=== PATIENT | female | born 1945 | race Caucasian/White ===

== ENCOUNTER 2017-02-19 02:46 | Inpatient (IN) | payer OTHER ==
[~2017-02-19] VITALS: Ht 172.7 cm; Wt 97.4 kg
[~2017-02-19 02:46] MED LIST: AMLO5TAB2 PO; ATOR20TA; ATOR20TA50 PO; CAPT25TA5; CAPT25TA5 PO; CLON0.1T PO; CLON0.2T; GLIP-116 PO; HYDR25TA4 PO; INSDRIP SC; INSUINJ2 SC; LEVO100T8 PO; NPH INSULIN; POTA10TA51 PO
[2017-02-19] MEDS ORDERED: ALBUTEROL SULF 2.5 MG/0.5ML(0.5%) NEB SOLN NEB ONE (03:15)
[2017-02-19] MEDS ORDERED: IPRATROPIUM BROM 0.5 MG/2.5ML INH SOL NEB ONE (03:15)
[2017-02-19] MEDS ORDERED: FUROSEMIDE 20 MG/2 ML VIAL IV ONE (03:30)
[2017-02-19 04:06] LABS: Basophils # (auto) 0 uL; Basophils % (auto) 0.2 % (0.0-2.0); Eosinophils # (auto) 0.1 uL; Eosinophils % (auto) 0.7 % (0.0-7.0); Hematocrit 30.2 % (36.0-46.0); Hemoglobin 10.3 g/dL (12.2-16.2); Lymphocytes # (auto) 1.4 uL; Mean Corpuscular Hemoglobin 30.2 pg (28.0-32.0); Monocytes # (auto) 1.6 uL; Monocytes % (auto) 13.3 % (0.0-12.0); Neutrophils # (auto) 8.6 uL; Neutrophils % (auto) 73.8 % (37.0-80.0); Nucleated Red Blood Cells % 0.2 %; Platelet Count (auto) 336 10^3/uL (140-450); Red Cell Distribution Width 16.3 % (11.8-14.3); White Blood Cell 11.7 10^3/uL (4.4-10.8)
[2017-02-19 04:27] LABS: Albumin 2.8 g/dL (3.4-5.0); BUN/Creatinine Ratio 23.8; Calcium 8.1 mg/dL (8.5-10.1); Potassium 3.3 mmol/L (3.5-5.1)
[2017-02-19 04:29] LABS: Bilirubin, Total 0.7 mg/dL (0.2-1.0); Total Protein 7.2 g/dL (6.4-8.2)
[2017-02-19] MEDS ORDERED: DEXTROSE (50%) 50ML SYRG IV ONE (04:45)
[2017-02-19] MEDS ORDERED: POTASSIUM CHL 20 Meq TABLET PO ONE (06:00)
[2017-02-19] MEDS ORDERED: cefTRIAXone 1GM/10ml IVPUSH 10 ML IV ONE (06:00)
[2017-02-19] MEDS ORDERED: ACETAMINOPHEN 500 MG TAB PO PRN (06:30)
[2017-02-19] MEDS ORDERED: ONDANSETRON HCL 4 MG/2 ML VIAL IV PRN (06:30)
[2017-02-19] MEDS: LEVOTHYROXINE SODIUM 100 MCG TAB PO SCH (07:59)
[2017-02-19 08:57] VITALS: BP 170/74
[2017-02-19] MEDS ORDERED: amLODIPine BESYLATE 5 MG TAB PO SCH (10:00)
[2017-02-19] MEDS ORDERED: cloNIDine HCL 0.1 MG TAB PO SCH (10:00)
[2017-02-19] MEDS ORDERED: FUROSEMIDE 40 MG/4 ML VIAL IV SCH (10:00)
[2017-02-19] MEDS: CLOPIDOGREL BISULFATE 75 MG TAB PO SCH (10:09)
[2017-02-19] MEDS: CARVEDILOL 12.5 MG TAB PO SCH ×2 (10:10→22:51)
[2017-02-19] MEDS ORDERED: ASPirin 81 mg TAB PO ONE (13:00)
[2017-02-19] MEDS ORDERED: LISINOPRIL 10 MG TAB PO ONE (13:00)
[2017-02-19] MEDS ORDERED: DEXTROSE (50%) 50ML SYRG IV PRN (13:00)
[2017-02-19 15:04] VITALS: BP 124/71
[2017-02-19 16:41] VITALS: BP 134/59
[2017-02-19] MEDS: ACCU-CHEK COMFORT CURVE STRIP VI SCH ×2 (17:00→22:00)
[2017-02-19] MEDS: InsuLIN REG 1unit/0.01ml Soln (100units/ml) SC SCH ×2 (17:58→22:00)
[2017-02-19 22:00] VITALS: BP 172/83
[2017-02-19] MEDS: FUROSEMIDE 40 MG/4 ML VIAL IV SCH (22:49)
[2017-02-19] MEDS: ATORVASTATIN 20 MG TAB PO SCH (22:49)
[2017-02-19] MEDS: cloNIDine HCL 0.1 MG TAB PO SCH (22:50)
[2017-02-19] MEDS: POTASSIUM CHL 20 Meq TABLET PO SCH (22:54)
[2017-02-20 05:00] VITALS: BP 140/71
[2017-02-20] MEDS: InsuLIN REG 1unit/0.01ml Soln (100units/ml) SC SCH ×4 (06:59→21:19)
[2017-02-20] MEDS: ACCU-CHEK COMFORT CURVE STRIP VI SCH ×4 (06:59→21:18)
[2017-02-20] MEDS: LEVOTHYROXINE SODIUM 100 MCG TAB PO SCH (07:00)
[2017-02-20 07:13] LABS: BUN/Creatinine Ratio 33.7; Calcium 8.3 mg/dL (8.5-10.1); Magnesium 2.4 mg/dL (1.6-2.6); Potassium 3.9 mmol/L (3.5-5.1)
[2017-02-20 09:00] VITALS: BP 149/58
[2017-02-20] MEDS ORDERED: LISINOPRIL 10 MG TAB PO SCH (10:00)
[2017-02-20] MEDS: CARVEDILOL 12.5 MG TAB PO SCH ×2 (10:00→21:42)
[2017-02-20] MEDS: cloNIDine HCL 0.1 MG TAB PO SCH ×2 (10:00→21:45)
[2017-02-20] MEDS: POTASSIUM CHL 20 Meq TABLET PO SCH ×2 (10:39→21:16)
[2017-02-20] MEDS: ASPirin 81 mg TAB PO SCH (10:39)
[2017-02-20] MEDS: CLOPIDOGREL BISULFATE 75 MG TAB PO SCH (10:40)
[2017-02-20] MEDS: FUROSEMIDE 40 MG/4 ML VIAL IV SCH ×2 (10:42→21:46)
[2017-02-20] MEDS ORDERED: METOLAZONE 5 MG TAB PO ONE (12:00)
[2017-02-20 13:00] VITALS: BP 126/53
[2017-02-20 17:00] VITALS: BP 151/87
[2017-02-20] MEDS: ATORVASTATIN 20 MG TAB PO SCH (21:16)
[2017-02-20] MEDS: HYDROcodone-ACET 5/325MG TAB PO PRN (21:17)
[2017-02-20 22:00] VITALS: BP 158/73
[2017-02-21 05:00] VITALS: BP 125/64
[2017-02-21] MEDS: HYDROcodone-ACET 5/325MG TAB PO PRN ×3 (05:37→20:13)
[2017-02-21 06:28] LABS: BUN/Creatinine Ratio 46.1; Calcium 8.1 mg/dL (8.5-10.1); Potassium 4.1 mmol/L (3.5-5.1)
[2017-02-21] MEDS: LEVOTHYROXINE SODIUM 100 MCG TAB PO SCH (06:55)
[2017-02-21] MEDS: ACCU-CHEK COMFORT CURVE STRIP VI SCH ×4 (06:56→22:00)
[2017-02-21] MEDS: InsuLIN REG 1unit/0.01ml Soln (100units/ml) SC SCH ×4 (06:56→22:00)
[2017-02-21 08:00] VITALS: BP 140/63
[2017-02-21 09:00] VITALS: BP 140/63
[2017-02-21] MEDS: FUROSEMIDE 40 MG/4 ML VIAL IV SCH ×2 (09:48→22:12)
[2017-02-21] MEDS: POTASSIUM CHL 20 Meq TABLET PO SCH ×2 (09:48→22:15)
[2017-02-21] MEDS: METOLAZONE 5 MG TAB PO SCH (09:48)
[2017-02-21] MEDS: CARVEDILOL 12.5 MG TAB PO SCH ×2 (09:49→22:00)
[2017-02-21] MEDS: CLOPIDOGREL BISULFATE 75 MG TAB PO SCH (09:49)
[2017-02-21] MEDS: ASPirin 81 mg TAB PO SCH (09:49)
[2017-02-21] MEDS: LISINOPRIL 10 MG TAB PO SCH (09:50)
[2017-02-21] MEDS: cloNIDine HCL 0.1 MG TAB PO SCH ×2 (09:50→22:27)
[2017-02-21 11:58] VITALS: BP 119/54
[2017-02-21 14:29] LABS: Urine Bacteria NONE SEEN /hpf (None Seen); Urine Blood TRACE /uL (Negative); Urine Mucus FEW (None Seen); Urine Specific Gravity 1.007 (1.001-1.035); Urine WBC 1 /hpf (0 - 5)
[2017-02-21 17:25] VITALS: BP 138/79
[2017-02-21 22:00] VITALS: BP 155/57
[2017-02-21] MEDS: ATORVASTATIN 20 MG TAB PO SCH (22:15)
[2017-02-22] MEDS: HYDROcodone-ACET 5/325MG TAB PO PRN ×4 (02:16→20:07)
[2017-02-22 05:00] VITALS: BP 138/64
[2017-02-22 06:15] LABS: Calcium 8.1 mg/dL (8.5-10.1); Potassium 3.7 mmol/L (3.5-5.1)
[2017-02-22 06:17] LABS: BUN/Creatinine Ratio 45.3
[2017-02-22] MEDS: LEVOTHYROXINE SODIUM 100 MCG TAB PO SCH (07:05)
[2017-02-22] MEDS: ACCU-CHEK COMFORT CURVE STRIP VI SCH ×4 (07:07→22:51)
[2017-02-22] MEDS: InsuLIN REG 1unit/0.01ml Soln (100units/ml) SC SCH ×4 (07:07→22:51)
[2017-02-22 08:00] VITALS: BP 135/58
[2017-02-22 09:38] VITALS: BP 135/58
[2017-02-22] MEDS: CARVEDILOL 12.5 MG TAB PO SCH ×2 (10:00→22:40)
[2017-02-22] MEDS: ASPirin 81 mg TAB PO SCH (10:27)
[2017-02-22] MEDS: POTASSIUM CHL 20 Meq TABLET PO SCH ×2 (10:27→22:40)
[2017-02-22] MEDS: METOLAZONE 5 MG TAB PO SCH (10:27)
[2017-02-22] MEDS: LISINOPRIL 10 MG TAB PO SCH (10:27)
[2017-02-22] MEDS: CLOPIDOGREL BISULFATE 75 MG TAB PO SCH (10:27)
[2017-02-22] MEDS: FUROSEMIDE 40 MG/4 ML VIAL IV SCH ×2 (10:28→22:39)
[2017-02-22] MEDS: cloNIDine HCL 0.1 MG TAB PO SCH ×2 (10:28→22:40)
[2017-02-22 13:00] VITALS: BP 147/59
[2017-02-22 17:00] VITALS: BP 150/67
[2017-02-22 22:11] VITALS: BP 140/63
[2017-02-22] MEDS: ATORVASTATIN 20 MG TAB PO SCH (22:39)
[2017-02-23] MEDS: HYDROcodone-ACET 5/325MG TAB PO PRN ×4 (00:28→20:28)
[2017-02-23 04:40] VITALS: BP 137/59
[2017-02-23 05:58] LABS: Basophils # (auto) 0 uL; Basophils % (auto) 0.3 % (0.0-2.0); Eosinophils # (auto) 0.1 uL; Eosinophils % (auto) 1.3 % (0.0-7.0); Hematocrit 32.7 % (36.0-46.0); Hemoglobin 10.7 g/dL (12.2-16.2); Lymphocytes # (auto) 2.6 uL; Lymphocytes % (auto) 50.3 % (10.0-50.0); Mean Corpuscular Hemoglobin 29.2 pg (28.0-32.0); Mean Corpuscular Hgb Conc. 32.7 g/dL (32.0-36.0); Mean Corpuscular Volume 89.1 fL (80.0-100.0); Monocytes # (auto) 0.8 uL; Monocytes % (auto) 14.6 % (0.0-12.0); Neutrophils # (auto) 1.8 uL; Neutrophils % (auto) 33.5 % (37.0-80.0); Nucleated Red Blood Cells % 0.2 %; Platelet Count (auto) 213 10^3/uL (140-450); Red Blood Cells 3.67 10^6/uL (4.0-5.20); Red Cell Distribution Width 15.8 % (11.8-14.3); White Blood Cell 5.2 10^3/uL (4.4-10.8)
[2017-02-23] MEDS: LEVOTHYROXINE SODIUM 100 MCG TAB PO SCH (06:05)
[2017-02-23] MEDS: ACCU-CHEK COMFORT CURVE STRIP VI SCH ×4 (06:06→22:08)
[2017-02-23] MEDS: InsuLIN REG 1unit/0.01ml Soln (100units/ml) SC SCH ×4 (06:06→22:30)
[2017-02-23 06:22] LABS: BUN/Creatinine Ratio 39.8; Bilirubin, Total 0.8 mg/dL (0.2-1.0); Calcium 8.3 mg/dL (8.5-10.1); Magnesium 2.4 mg/dL (1.6-2.6); Phosphorus 3.5 mg/dL (2.5-4.90); Potassium 3.8 mmol/L (3.5-5.1); Total Protein 7.3 g/dL (6.4-8.2)
[2017-02-23 08:00] VITALS: BP 125/51
[2017-02-23 08:18] VITALS: BP 125/51
[2017-02-23] MEDS: CARVEDILOL 12.5 MG TAB PO SCH ×2 (10:00→22:08)
[2017-02-23] MEDS: cloNIDine HCL 0.1 MG TAB PO SCH ×2 (10:00→22:08)
[2017-02-23] MEDS: LISINOPRIL 10 MG TAB PO SCH (10:00)
[2017-02-23] MEDS: CLOPIDOGREL BISULFATE 75 MG TAB PO SCH (10:11)
[2017-02-23] MEDS: POTASSIUM CHL 20 Meq TABLET PO SCH ×2 (10:11→22:07)
[2017-02-23] MEDS: ASPirin 81 mg TAB PO SCH (10:11)
[2017-02-23] MEDS: FUROSEMIDE 40 MG/4 ML VIAL IV SCH ×2 (10:11→22:07)
[2017-02-23] MEDS: METOLAZONE 5 MG TAB PO SCH (10:11)
[2017-02-23 13:13] VITALS: BP 141/57
[2017-02-23 17:00] VITALS: BP 129/68
[2017-02-23 22:00] VITALS: BP 142/58
[2017-02-23] MEDS: ATORVASTATIN 20 MG TAB PO SCH (22:07)
[2017-02-24] MEDS: HYDROcodone-ACET 5/325MG TAB PO PRN ×3 (01:40→20:22)
[2017-02-24 05:05] VITALS: BP 122/59
[2017-02-24] MEDS: ACCU-CHEK COMFORT CURVE STRIP VI SCH ×4 (06:15→22:15)
[2017-02-24] MEDS: InsuLIN REG 1unit/0.01ml Soln (100units/ml) SC SCH ×4 (06:15→22:15)
[2017-02-24] MEDS: LEVOTHYROXINE SODIUM 100 MCG TAB PO SCH (06:15)
[2017-02-24 07:53] VITALS: BP 136/51
[2017-02-24 08:00] VITALS: BP 136/51
[2017-02-24] MEDS: POTASSIUM CHL 20 Meq TABLET PO SCH (09:58)
[2017-02-24] MEDS: CLOPIDOGREL BISULFATE 75 MG TAB PO SCH (09:58)
[2017-02-24] MEDS: FUROSEMIDE 40 MG/4 ML VIAL IV SCH (09:58)
[2017-02-24] MEDS: ASPirin 81 mg TAB PO SCH (09:59)
[2017-02-24] MEDS: CARVEDILOL 12.5 MG TAB PO SCH (09:59)
[2017-02-24] MEDS: METOLAZONE 5 MG TAB PO SCH (09:59)
[2017-02-24] MEDS: LISINOPRIL 10 MG TAB PO SCH (10:00)
[2017-02-24] MEDS: cloNIDine HCL 0.1 MG TAB PO SCH ×2 (10:00→22:14)
[2017-02-24 11:51] VITALS: BP 144/58
[2017-02-24] MEDS: LOSARTAN POTASSIUM 25 MG TAB PO SCH (14:18)
[2017-02-24 16:57] VITALS: BP 140/50
[2017-02-24 22:00] VITALS: BP 146/57
[2017-02-24] MEDS: ATORVASTATIN 20 MG TAB PO SCH (22:15)
[2017-02-24] MEDS: CARVEDILOL 3.125 MG TAB PO SCH (22:15)
[2017-02-25] MEDS: HYDROcodone-ACET 5/325MG TAB PO PRN ×3 (01:44→20:25)
[2017-02-25 05:00] VITALS: BP 137/58
[2017-02-25] MEDS: ACCU-CHEK COMFORT CURVE STRIP VI SCH ×4 (06:35→22:17)
[2017-02-25] MEDS: LEVOTHYROXINE SODIUM 100 MCG TAB PO SCH (06:35)
[2017-02-25] MEDS: InsuLIN REG 1unit/0.01ml Soln (100units/ml) SC SCH ×4 (06:36→22:16)
[2017-02-25 08:49] VITALS: BP 161/66
[2017-02-25] MEDS: LOSARTAN POTASSIUM 25 MG TAB PO SCH (10:00)
[2017-02-25] MEDS: FUROSEMIDE 40 MG/4 ML VIAL IV SCH (12:19)
[2017-02-25] MEDS: CLOPIDOGREL BISULFATE 75 MG TAB PO SCH (12:19)
[2017-02-25] MEDS: METOLAZONE 5 MG TAB PO SCH (12:19)
[2017-02-25] MEDS: cloNIDine HCL 0.1 MG TAB PO SCH ×2 (12:20→14:29)
[2017-02-25] MEDS: POTASSIUM CHL 20 Meq TABLET PO SCH (12:21)
[2017-02-25] MEDS: CARVEDILOL 3.125 MG TAB PO SCH ×2 (12:21→21:56)
[2017-02-25] MEDS: ASPirin 81 mg TAB PO SCH (12:21)
[2017-02-25 13:09] LABS: Basophils # (auto) 0 uL; Basophils % (auto) 0.2 % (0.0-2.0); Eosinophils # (auto) 0.1 uL; Eosinophils % (auto) 1.5 % (0.0-7.0); Hematocrit 34.2 % (36.0-46.0); Hemoglobin 11.2 g/dL (12.2-16.2); Lymphocytes # (auto) 2.3 uL; Lymphocytes % (auto) 41.9 % (10.0-50.0); Mean Corpuscular Hemoglobin 28.8 pg (28.0-32.0); Mean Corpuscular Hgb Conc. 32.8 g/dL (32.0-36.0); Mean Corpuscular Volume 87.8 fL (80.0-100.0); Monocytes # (auto) 0.6 uL; Monocytes % (auto) 10.9 % (0.0-12.0); Neutrophils # (auto) 2.5 uL; Neutrophils % (auto) 45.5 % (37.0-80.0); Platelet Count (auto) 182 10^3/uL (140-450); Red Blood Cells 3.89 10^6/uL (4.0-5.20); Red Cell Distribution Width 15.5 % (11.8-14.3); White Blood Cell 5.5 10^3/uL (4.4-10.8)
[2017-02-25 13:13] VITALS: BP 166/60
[2017-02-25 13:34] LABS: BUN/Creatinine Ratio 35.6; Bilirubin, Total 0.7 mg/dL (0.2-1.0); Calcium 8.6 mg/dL (8.5-10.1); Potassium 3.5 mmol/L (3.5-5.1); Total Protein 7.9 g/dL (6.4-8.2)
[2017-02-25] MEDS: ceFAZolin 1GM/50ML 50 ML IV SCH ×2 (14:29→21:57)
[2017-02-25 16:57] VITALS: BP 130/75
[2017-02-25 20:00] VITALS: BP 150/62
[2017-02-25] MEDS: ATORVASTATIN 20 MG TAB PO SCH (21:57)
[2017-02-25 22:00] VITALS: BP 150/62
[2017-02-25] MEDS: INSULIN DETEMIR(LEVEMIR) 1unit/0.01ml Soln (100units/ml) SC SCH (22:17)
[2017-02-26] VITALS (7 sets, daily range): BP systolic 145–162; BP diastolic 52–88
[2017-02-26] MEDS: guaiFENesin 200 MG/10 ML UD GT PRN ×2 (00:29→17:05)
[2017-02-26] MEDS: LEVOTHYROXINE SODIUM 100 MCG TAB PO SCH (06:46)
[2017-02-26] MEDS: ceFAZolin 1GM/50ML 50 ML IV SCH ×3 (06:47→22:33)
[2017-02-26] MEDS: ACCU-CHEK COMFORT CURVE STRIP VI SCH ×4 (06:47→22:35)
[2017-02-26] MEDS: InsuLIN REG 1unit/0.01ml Soln (100units/ml) SC SCH ×4 (06:57→22:45)
[2017-02-26] MEDS: cloNIDine HCL 0.1 MG TAB PO SCH ×2 (10:00→22:34)
[2017-02-26] MEDS: METOLAZONE 5 MG TAB PO SCH (10:04)
[2017-02-26] MEDS: POTASSIUM CHL 20 Meq TABLET PO SCH (10:04)
[2017-02-26] MEDS: FUROSEMIDE 40 MG/4 ML VIAL IV SCH (10:04)
[2017-02-26] MEDS: CLOPIDOGREL BISULFATE 75 MG TAB PO SCH (10:04)
[2017-02-26] MEDS: CARVEDILOL 3.125 MG TAB PO SCH ×2 (10:05→22:35)
[2017-02-26] MEDS: ASPirin 81 mg TAB PO SCH (10:05)
[2017-02-26] MEDS: LOSARTAN POTASSIUM 25 MG TAB PO SCH (10:06)
[2017-02-26] MEDS: INSULIN DETEMIR(LEVEMIR) 1unit/0.01ml Soln (100units/ml) SC SCH ×2 (10:15→22:45)
[2017-02-26] MEDS: HYDROcodone-ACET 5/325MG TAB PO PRN ×2 (14:38→20:02)
[2017-02-26] MEDS ORDERED: POTASSIUM CHL 20 Meq TABLET PO ONE (15:45)
[2017-02-26] MEDS ORDERED: FUROSEMIDE 40 MG/4 ML VIAL IV ONE (15:45)
[2017-02-26] MEDS: ATORVASTATIN 20 MG TAB PO SCH (22:33)
[2017-02-27] MEDS: HYDROcodone-ACET 5/325MG TAB PO PRN (01:41)
[2017-02-27 05:31] VITALS: BP 142/67
[2017-02-27] MEDS: ceFAZolin 1GM/50ML 50 ML IV SCH ×2 (05:49→14:00)
[2017-02-27] MEDS: LEVOTHYROXINE SODIUM 100 MCG TAB PO SCH (05:49)
[2017-02-27] MEDS: InsuLIN REG 1unit/0.01ml Soln (100units/ml) SC SCH ×3 (06:42→17:00)
[2017-02-27] MEDS: ACCU-CHEK COMFORT CURVE STRIP VI SCH ×3 (06:42→17:00)
[2017-02-27 08:00] VITALS: BP 165/69
[2017-02-27 08:51] VITALS: BP 165/69
[2017-02-27] MEDS: guaiFENesin 200 MG/10 ML UD GT PRN (10:51)
[2017-02-27] MEDS: METOLAZONE 5 MG TAB PO SCH (10:52)
[2017-02-27] MEDS: LOSARTAN POTASSIUM 25 MG TAB PO SCH (10:52)
[2017-02-27] MEDS: CARVEDILOL 3.125 MG TAB PO SCH (10:53)
[2017-02-27] MEDS: ASPirin 81 mg TAB PO SCH (10:53)
[2017-02-27] MEDS: CLOPIDOGREL BISULFATE 75 MG TAB PO SCH (10:53)
[2017-02-27] MEDS: cloNIDine HCL 0.1 MG TAB PO SCH (10:53)
[2017-02-27] MEDS: POTASSIUM CHL 20 Meq TABLET PO SCH (10:53)
[2017-02-27] MEDS: FUROSEMIDE 40 MG/4 ML VIAL IV SCH (10:54)
[2017-02-27] MEDS: INSULIN DETEMIR(LEVEMIR) 1unit/0.01ml Soln (100units/ml) SC SCH (11:00)
[2017-02-27] MEDS ORDERED: FUROSEMIDE 40 MG TAB PO ONE (12:15)
[2017-02-27 13:00] VITALS: BP 147/60
[2017-02-27 14:29] VITALS: BP 147/60
[2017-02-27 17:00] VITALS: BP 150/74
== END 2017-02-27 17:35 | disposition home or self-care (01) | DRG 291 ==
LOC: EDBD 02:46 → ER 02:54 → TELE 02:55 → TELE-WESTW 09:01 → TELE-EAST 12:00
PROVIDERS: ADMIT Nurse Practitioner Family; ATTEND Internal Medicine
DX: I11.0 Hypertensive heart disease with heart failure (principal); J96.00 Acute respiratory failure, unspecified whether with hypoxia or hypercapnia; E44.0 Moderate protein-calorie malnutrition; J44.0 Chronic obstructive pulmonary disease with (acute) lower respiratory infection; D68.59 Other primary thrombophilia; E11.649 Type 2 diabetes mellitus with hypoglycemia without coma; J44.1 Chronic obstructive pulmonary disease with (acute) exacerbation; L02.214 Cutaneous abscess of groin; I50.43 Acute on chronic combined systolic (congestive) and diastolic (congestive) heart failure; D64.9 Anemia, unspecified; E03.9 Hypothyroidism, unspecified; E78.5 Hyperlipidemia, unspecified; E66.9 Obesity, unspecified; E87.6 Hypokalemia; I25.10 Atherosclerotic heart disease of native coronary artery without angina pectoris; I25.2 Old myocardial infarction; J20.9 Acute bronchitis, unspecified; Z79.4 Long term (current) use of insulin; Z79.899 Other long term (current) drug therapy; Z82.49 Family history of ischemic heart disease and other diseases of the circulatory system; Z83.3 Family history of diabetes mellitus; Z86.73 Personal history of transient ischemic attack (TIA), and cerebral infarction without residual deficits; Z95.5 Presence of coronary angioplasty implant and graft; Z79.84 Long term (current) use of oral hypoglycemic drugs; Z79.82 Long term (current) use of aspirin; Z68.32 Body mass index [BMI] 32.0-32.9, adult
CPT/HCPCS: 36415; 36600; 71010; 76881; 80048; 80053; 81001; 82805; 82962; 83735; 83880; 84100; 84484; 85025; 85379; 87081; 93005; 94644; 96374; 96375; 97116; 97163; 97530; J0690; J1815

== ENCOUNTER 2017-04-24 16:37 | Inpatient (IN) | payer OTHER ==
[~2017-04-24] VITALS: Ht 172.7 cm; Wt 102.7 kg
[~2017-04-24 16:37] MED LIST changes: -ATOR20TA; -CAPT25TA5 PO; -CLON0.1T PO
[2017-04-24] MEDS ORDERED: SODIUM CHLORIDE 0.9% 1,000 ML IV ONE (17:01)
[2017-04-24] MEDS ORDERED: ONDANSETRON HCL 4 MG/2 ML VIAL IV ONE (17:15)
[2017-04-24] MEDS ORDERED: MORPHINE SULFATE 4 MG/ML SYR/VIAL IV ONE (17:15)
[2017-04-24 17:45] LABS: Basophils # (auto) 0 uL; Basophils % (auto) 0.3 % (0.0-2.0); Eosinophils # (auto) 0.3 uL; Eosinophils % (auto) 3.2 % (0.0-7.0); Hemoglobin 13.4 g/dL (12.2-16.2); Lymphocytes # (auto) 3.7 uL; Lymphocytes % (auto) 36.1 % (10.0-50.0); Mean Corpuscular Hemoglobin 28.2 pg (28.0-32.0); Mean Corpuscular Hgb Conc. 32.7 g/dL (32.0-36.0); Mean Corpuscular Volume 86.2 fL (80.0-100.0); Monocytes # (auto) 0.9 uL; Monocytes % (auto) 8.8 % (0.0-12.0); Neutrophils # (auto) 5.3 uL; Neutrophils % (auto) 51.6 % (37.0-80.0); Nucleated Red Blood Cells % 0.1 %; Platelet Count (auto) 270 10^3/uL (140-450); Red Blood Cells 4.76 10^6/uL (4.0-5.20); White Blood Cell 10.2 10^3/uL (4.4-10.8)
[2017-04-24 17:56] LABS: INR 0.99 (0.9-1.15); Partial Thromboplastin Time 25.6 sec (22.64-33.71); Prothrombin Time 10.8 sec (9.37-12.3)
[2017-04-24 18:00] LABS: Albumin 3.4 g/dL (3.4-5.0); Calcium 8.5 mg/dL (8.5-10.1); Potassium 3.3 mmol/L (3.5-5.1)
[2017-04-24 18:06] LABS: BUN/Creatinine Ratio 23.8; Bilirubin, Total 0.4 mg/dL (0.2-1.0); Total Protein 8.6 g/dL (6.4-8.2)
[2017-04-24] MEDS ORDERED: DEXTROSE (50%) 50ML SYRG IV PRN (18:15)
[2017-04-24] MEDS ORDERED: LACTULOSE 20Gm/30ML SOLN PO PRN (18:15)
[2017-04-24] MEDS ORDERED: ACETAMINOPHEN 500 MG TAB PO PRN (18:15)
[2017-04-24] MEDS ORDERED: PROMETHAZINE HCL 25 MG/ML 1ML IV PRN (18:15)
[2017-04-24] MEDS ORDERED: HYDROcodone-ACET 5/325MG TAB PO PRN (18:15)
[2017-04-24] MEDS ORDERED: NITROGLYCERIN 0.4 MG SL TAB SL PRN (18:15)
[2017-04-24] MEDS ORDERED: MORPHINE SULFATE 4 MG/ML SYR/VIAL IV PRN ×2 (18:15)
[2017-04-24] MEDS ORDERED: LORazepam 0.5 MG TAB PO PRN (18:15)
[2017-04-24] MEDS ORDERED: TEMAZEPAM 15 MG CAP PO PRN (18:15)
[2017-04-24] MEDS ORDERED: FUROSEMIDE 40 MG/4 ML VIAL IV ONE (18:15)
[2017-04-24] MEDS ORDERED: ENOXAPARIN SOD 80 MG/0.8ML SYRINGE SC ONE (18:45)
[2017-04-24] MEDS: cloNIDine HCL 0.1 MG TAB PO SCH (22:00)
[2017-04-24] MEDS: ACCU-CHEK COMFORT CURVE STRIP VI SCH (22:00)
[2017-04-24] MEDS: InsuLIN REG 1unit/0.01ml Soln (100units/ml) SC SCH (22:00)
[2017-04-24] MEDS: SODIUM CHLOR 0.9% PF (SALINE LOCK) 10ML VIAL IV SCH (22:00)
[2017-04-24] MEDS: CAPTOPRIL 25 MG TAB PO SCH (22:00)
[2017-04-24] MEDS: CARVEDILOL 3.125 MG TAB PO SCH (22:00)
[2017-04-24] MEDS ORDERED: INSULIN NPH Isophane (HUMAN) 1unit/0.01ml Susp(100units/ml) SC SCH (22:00)
[2017-04-25] VITALS (8 sets, daily range): BP systolic 146–186; BP diastolic 61–118
[2017-04-25] MEDS: SODIUM CHLOR 0.9% PF (SALINE LOCK) 10ML VIAL IV SCH ×2 (05:33→14:00)
[2017-04-25] MEDS: CAPTOPRIL 25 MG TAB PO SCH (06:00)
[2017-04-25] MEDS: cloNIDine HCL 0.1 MG TAB PO SCH (06:00)
[2017-04-25] MEDS: InsuLIN REG 1unit/0.01ml Soln (100units/ml) SC SCH ×2 (06:27→11:30)
[2017-04-25 06:30] LABS: Basophils # (auto) 0 uL; Basophils % (auto) 0.2 % (0.0-2.0); Eosinophils # (auto) 0.3 uL; Eosinophils % (auto) 2.3 % (0.0-7.0); Hematocrit 37.4 % (36.0-46.0); Lymphocytes # (auto) 4.2 uL; Lymphocytes % (auto) 36.1 % (10.0-50.0); Mean Corpuscular Hgb Conc. 32.1 g/dL (32.0-36.0); Monocytes # (auto) 1.2 uL; Monocytes % (auto) 10.2 % (0.0-12.0); Neutrophils # (auto) 5.9 uL; Neutrophils % (auto) 51.2 % (37.0-80.0); Nucleated Red Blood Cells % 0.1 %; Platelet Count (auto) 217 10^3/uL (140-450); Red Cell Distribution Width 16.2 % (11.8-14.3); White Blood Cell 11.6 10^3/uL (4.4-10.8)
[2017-04-25 07:00] LABS: Albumin 2.9 g/dL (3.4-5.0); BUN/Creatinine Ratio 24.1; Bilirubin, Total 0.4 mg/dL (0.2-1.0); Calcium 8.9 mg/dL (8.5-10.1); Potassium 3.1 mmol/L (3.5-5.1); Total Protein 7.3 g/dL (6.4-8.2)
[2017-04-25] MEDS ORDERED: LEVOTHYROXINE SODIUM 100 MCG TAB PO SCH (07:00)
[2017-04-25] MEDS ORDERED: glipiZIDE 5 MG TAB PO SCH (07:00)
[2017-04-25] MEDS: ACCU-CHEK COMFORT CURVE STRIP VI SCH ×10 (07:21→23:00)
[2017-04-25] MEDS ORDERED: IOHEXOL 350 MG/ML 100ML IJ ONE ×2 (08:24→09:35)
[2017-04-25] MEDS ORDERED: LIDOCAINE 2%HCL (LOCAL ANESTH.) INJ 20ML MDV ONE ×2 (08:24→11:48)
[2017-04-25] MEDS ORDERED: ANGIOMAX 250 MG VIAL IV ONE (09:23)
[2017-04-25] MEDS ORDERED: MIDAZOLAM HCL 1MG/1ML-2 ML VIAL ONE ×2 (09:23→15:43)
[2017-04-25] MEDS ORDERED: fentaNYL CITRATE 100 MCG/2 ML VL ONE ×2 (09:23→15:44)
[2017-04-25] MEDS ORDERED: SODIUM CHL 0.9% 50 ML ONE (09:23)
[2017-04-25] MEDS ORDERED: METOPROLOL TARTRATE 1MG/1ML-5ML VIAL IV ONE (09:48)
[2017-04-25] MEDS ORDERED: ENOXAPARIN SOD 80 MG/0.8ML SYRINGE SC SCH (10:00)
[2017-04-25] MEDS ORDERED: NITROGLYCERIN 0.2MG/HR TOPICAL PATCH TD SCH (10:00)
[2017-04-25] MEDS ORDERED: ASPirin 81 mg TAB PO SCH (10:00)
[2017-04-25] MEDS ORDERED: ENOXAPARIN SOD 40 MG/0.4 ML SYRINGE SC SCH ×2 (10:00)
[2017-04-25] MEDS ORDERED: HCTZ 25 MG TAB PO SCH (10:00)
[2017-04-25] MEDS ORDERED: FUROSEMIDE 40 MG/4 ML VIAL IV SCH (10:00)
[2017-04-25] MEDS ORDERED: ATORVASTATIN 20 MG TAB PO SCH (10:00)
[2017-04-25] MEDS ORDERED: POTASSIUM CHL 20 Meq TABLET PO SCH (10:00)
[2017-04-25] MEDS ORDERED: amLODIPine BESYLATE 5 MG TAB PO SCH (10:00)
[2017-04-25] MEDS ORDERED: PANTOPRAZOLE 40 MG TAB PO SCH (10:00)
[2017-04-25] MEDS ORDERED: NITROGLYCERIN 50MG/250ML 250 ML IV ONE (10:22)
[2017-04-25] MEDS ORDERED: ASCORBIC ACID 500 MG TAB PO ONE (10:47)
[2017-04-25] MEDS ORDERED: HEPARIN DRIP/D5W 100UNITS/ML 250 ML IV ONE (10:49)
[2017-04-25] MEDS ORDERED: CHLORHEXIDINE 4% TOPICAL soln 473ML TOP ONE (10:49)
[2017-04-25] MEDS ORDERED: POTASSIUM CHL 20MEQ/100ML 100 ML IV ONE ×3 (10:49→14:00)
[2017-04-25] MEDS ORDERED: MORPHINE SULFATE 4 MG/ML SYR/VIAL IV PRN ×3 (11:00→16:00)
[2017-04-25] MEDS ORDERED: VANCOMYCIN 1GM/250ML 250 ML IV ONE (11:00)
[2017-04-25] MEDS ORDERED: NITROGLYCERIN 0.4 MG SL TAB SL PRN (11:00)
[2017-04-25] MEDS ORDERED: ceFAZolin 1GM/50ML 50 ML IV ONE (11:00)
[2017-04-25] MEDS ORDERED: ASPI-231 PO (11:05)
[2017-04-25] MEDS ORDERED: POTA8TAB2 PO (11:05)
[2017-04-25] MEDS ORDERED: FURO40TA PO (11:05)
[2017-04-25] MEDS ORDERED: CLOP75TA28 PO (11:05)
[2017-04-25] MEDS ORDERED: METO5TAB56 PO (11:05)
[2017-04-25] MEDS ORDERED: CAR125T PO (11:05)
[2017-04-25] MEDS ORDERED: GLIP-116 PO (11:05)
[2017-04-25] MEDS ORDERED: INSREG3 SC (11:05)
[2017-04-25] MEDS ORDERED: CAPT50TA5 PO (11:05)
[2017-04-25] MEDS ORDERED: ROCURONIUM 10MG/ML 10ML VIAL IV ONE ×2 (11:28→16:25)
[2017-04-25] MEDS ORDERED: HEPARIN DRIP/D5W 100UNITS/ML 250 ML IV SCH (11:30)
[2017-04-25] MEDS ORDERED: MORPHINE SULF INJ 2 MG/ML SYRINGE 1ML ONE (11:42)
[2017-04-25] MEDS ORDERED: ACCU-CHEK COMFORT CURVE STRIP VI ONE (12:00)
[2017-04-25] MEDS ORDERED: NOREPINEPHRINE 8 MG/250ML KIT 250 ML IV ONE (12:00)
[2017-04-25] MEDS ORDERED: AMINOCAPROIC ACID 5 GM in SODIUM CHL 0.9% 250 ML IV ONE (12:00)
[2017-04-25] MEDS ORDERED: VASOPRESSIN 50 UNITS in SODIUM CHL 0.9% 247.5 ML IV ONE (12:00)
[2017-04-25] MEDS ORDERED: PHENYLEPHRINE INJ 20 MG in SODIUM CHL 0.9% 250 ML IV ONE (12:00)
[2017-04-25] MEDS ORDERED: HEPARIN 30000 UNITS in SODIUM CHLORIDE 0.9% 1000 ML IV ONE (12:00)
[2017-04-25] MEDS ORDERED: EPINEPHrine HCL 4 MG in D5W 5% 250 ML IV ONE (12:00)
[2017-04-25] MEDS ORDERED: AMINOCAPROIC ACID 10 GM in SODIUM CHL 0.9% 100 ML IV ONE (12:00)
[2017-04-25] MEDS ORDERED: InsuLIN R (HUMAN) 100 UNITS in SODIUM CHL 0.9% 99 ML IV ONE (12:00)
[2017-04-25] MEDS: CARVEDILOL 3.125 MG TAB PO SCH (12:00)
[2017-04-25 12:10] LABS: Urine Bacteria FEW /hpf (None Seen); Urine Blood 1+ /uL (Negative); Urine Specific Gravity 1.038 (1.001-1.035); Urine WBC 5 /hpf (0 - 5)
[2017-04-25] MEDS ORDERED: FUROSEMIDE 40 MG/4 ML VIAL ONE (12:24)
[2017-04-25] MEDS ORDERED: PLASMA-LYTE A pH7.4 8,000 ML INJ ONE (14:08)
[2017-04-25] MEDS ORDERED: ALBUMIN 25% IV ONE (14:10)
[2017-04-25] MEDS ORDERED: FENTANYL CITRATE ONE (15:44)
[2017-04-25] MEDS: SODIUM CHLORIDE 0.9% 500 ML IV SCH (15:46)
[2017-04-25] MEDS: NOREPINEPHRINE 8 MG/250ML KIT 250 ML IV SCH (15:46)
[2017-04-25] MEDS: SODIUM CHLORIDE 0.9% 1,000 ML IV SCH (15:46)
[2017-04-25] MEDS: NICARDIPINE 25MG/250ML BAG KIT 250 ML IV SCH ×2 (15:46→20:46)
[2017-04-25] MEDS ORDERED: INSULIN DRIP 100 UNIT/100ML 100 ML IV SCH (15:46)
[2017-04-25] MEDS: PROPOFOL 100 ML IV SCH (15:46)
[2017-04-25] MEDS ORDERED: NITROGLYCERIN 50MG/250ML 250 ML IV SCH (15:46)
[2017-04-25] MEDS ORDERED: AMIODARONE HCL 900 MG in DEXTROSE 500 ML IV SCH ×2 (15:56→21:56)
[2017-04-25] MEDS ORDERED: METOCLOPRAMIDE HCL 5MG/ml INJ 2ml VIAL IV PRN (16:00)
[2017-04-25] MEDS ORDERED: DEXTROSE (50%) 50ML SYRG IV PRN (16:00)
[2017-04-25] MEDS ORDERED: ONDANSETRON HCL 4 MG/2 ML VIAL IV PRN (16:00)
[2017-04-25] MEDS ORDERED: CALCIUM GLUC 4.65meq/50ml D5AE 50 ML IV PRN (16:00)
[2017-04-25] MEDS ORDERED: MAGNESIUM SULFATE 1GM/100ML 100 ML IV PRN (16:00)
[2017-04-25] MEDS ORDERED: FUROSEMIDE 20 MG/2 ML VIAL IV PRN (16:00)
[2017-04-25] MEDS ORDERED: fentaNYL CITRATE 100 MCG/2 ML VL IV PRN (16:00)
[2017-04-25] MEDS ORDERED: ZOLPIDEM TARTRATE 5 MG TAB PO PRN (16:00)
[2017-04-25] MEDS ORDERED: PROPRANOLOL HCL 1 MG/ML VIAL IV PRN (16:00)
[2017-04-25] MEDS ORDERED: SODIUM BICARBONATE 8.4% INJ 50ML SYRINGE IV PRN (16:00)
[2017-04-25] MEDS ORDERED: ALBUMIN 5% 250 ML IV PRN ×2 (16:00)
[2017-04-25] MEDS ORDERED: AZTREONAM 1GM INJ 1 GM in D5W 5% 50 ML IV ONE (16:00)
[2017-04-25] MEDS ORDERED: AMIODARONE HCL 150 MG in D5W 5% 100 ML IV ONE (16:00)
[2017-04-25] MEDS ORDERED: MORPHINE SULFATE 10 MG/ML INJ 1ML SDV IV PRN (16:00)
[2017-04-25] MEDS ORDERED: HEPARIN 1,000 UNITS/ml 1ML VIAL ONE ×2 (17:00→17:03)
[2017-04-25] MEDS ORDERED: NEOMYCIN-BACITRACIN-POLYM 15GM TOP OINT TOP ONE (17:00)
[2017-04-25] MEDS ORDERED: BACITRACIN INJ 50000 UNIT VIAL ONE (17:00)
[2017-04-25] MEDS ORDERED: PAPAVERINE HCL 60 MG/2 ML 2ML VIAL ONE (17:00)
[2017-04-25] MEDS: IPRATROPIUM BROM 0.5 MG/2.5ML INH SOL NEB SCH ×2 (18:00→22:00)
[2017-04-25] MEDS: ACETYLCYSTEINE 10 %(100MG/ML) SOL 4ML NEB SCH (22:00)
[2017-04-25 22:55] LABS: Basophils # (auto) 0 uL; Basophils % (auto) 0.1 % (0.0-2.0); Eosinophils # (auto) 0 uL; Eosinophils % (auto) 0.2 % (0.0-7.0); Hematocrit 22.9 % (36.0-46.0); Hemoglobin 7.4 g/dL (12.2-16.2); Monocytes # (auto) 0.6 uL; Monocytes % (auto) 2.9 % (0.0-12.0)
[2017-04-25 22:56] LABS: Lymphocytes # (auto) 2.3 uL; Lymphocytes % (auto) 11.3 % (10.0-50.0); Mean Corpuscular Hemoglobin 27.8 pg (28.0-32.0); Mean Corpuscular Hgb Conc. 32.3 g/dL (32.0-36.0); Neutrophils # (auto) 17.5 uL; Neutrophils % (auto) 85.5 % (37.0-80.0); Nucleated Red Blood Cells % 0.1 %; Red Blood Cells 2.67 10^6/uL (4.0-5.20); Red Cell Distribution Width 16.2 % (11.8-14.3); White Blood Cell 20.4 10^3/uL (4.4-10.8)
[2017-04-25 23:07] LABS: INR 1.65 (0.9-1.15); Partial Thromboplastin Time 26.8 sec (22.64-33.71); Prothrombin Time 18.1 sec (9.37-12.3)
[2017-04-25 23:18] LABS: Platelet Count (auto) 103 10^3/uL (140-450)
[2017-04-25] MEDS: MILRINONE 20MG/100ML 100 ML IV SCH (23:26)
[2017-04-25 23:27] LABS: Albumin 3.6 g/dL (3.4-5.0); BUN/Creatinine Ratio 15.1; Bilirubin, Total 1.1 mg/dL (0.2-1.0); Calcium 10.4 mg/dL (8.5-10.1); Phosphorus 1.7 mg/dL (2.5-4.90); Potassium 3.8 mmol/L (3.5-5.1); Total Protein 6.1 g/dL (6.4-8.2)
[2017-04-26] VITALS (107 sets, daily range): BP systolic 33–186; BP diastolic 14–103
[2017-04-26] MEDS: POTASSIUM CHL 20MEQ/100ML 100 ML IV PRN ×6 (00:58→12:31)
[2017-04-26] MEDS: ACCU-CHEK COMFORT CURVE STRIP VI SCH ×26 (01:00→23:44)
[2017-04-26] MEDS: NICARDIPINE 25MG/250ML BAG KIT 250 ML IV SCH ×5 (01:46→20:15)
[2017-04-26] MEDS: VANCOMYCIN 1GM/250ML 250 ML IV SCH ×2 (02:05→14:30)
[2017-04-26] MEDS: IPRATROPIUM BROM 0.5 MG/2.5ML INH SOL NEB SCH ×6 (02:10→22:23)
[2017-04-26] MEDS: AZTREONAM 1GM INJ 1 GM in D5W 5% 50 ML IV SCH ×3 (03:14→18:30)
[2017-04-26 03:20] LABS: Basophils # (auto) 0 uL; Eosinophils # (auto) 0 uL; Hematocrit 29.1 % (36.0-46.0); Hemoglobin 9.7 g/dL (12.2-16.2); Lymphocytes # (auto) 0.9 uL; Lymphocytes % (auto) 5.5 % (10.0-50.0); Mean Corpuscular Hemoglobin 29.1 pg (28.0-32.0); Mean Corpuscular Hgb Conc. 33.2 g/dL (32.0-36.0); Mean Corpuscular Volume 87.5 fL (80.0-100.0); Monocytes # (auto) 0.7 uL; Monocytes % (auto) 4.1 % (0.0-12.0); Neutrophils # (auto) 15.6 uL; Neutrophils % (auto) 90.4 % (37.0-80.0); Platelet Count (auto) 151 10^3/uL (140-450); Red Blood Cells 3.33 10^6/uL (4.0-5.20); Red Cell Distribution Width 15.9 % (11.8-14.3); White Blood Cell 17.2 10^3/uL (4.4-10.8)
[2017-04-26 03:35] LABS: INR 1.06 (0.9-1.15); Partial Thromboplastin Time 45.6 sec (22.64-33.71); Prothrombin Time 11.6 sec (9.37-12.3)
[2017-04-26 03:38] LABS: BUN/Creatinine Ratio 13.7; Calcium 10.5 mg/dL (8.5-10.1); Phosphorus 2.5 mg/dL (2.5-4.90); Potassium 3.4 mmol/L (3.5-5.1)
[2017-04-26 03:44] LABS: Magnesium 4.1 mg/dL (1.6-2.6)
[2017-04-26] MEDS: AMIODARONE HCL 900 MG in DEXTROSE 500 ML IV SCH (04:45)
[2017-04-26] MEDS: SODIUM CHLORIDE 0.9% 1,000 ML IV SCH ×2 (04:45→16:42)
[2017-04-26] MEDS: MILRINONE 20MG/100ML 100 ML IV SCH ×2 (05:14→19:26)
[2017-04-26] MEDS: ACETYLCYSTEINE 10 %(100MG/ML) SOL 4ML NEB SCH ×3 (05:53→22:23)
[2017-04-26] MEDS: PROPOFOL 100 ML IV SCH (06:13)
[2017-04-26 07:02] LABS: Basophils # (auto) 0 uL; Basophils % (auto) 0.2 % (0.0-2.0); Eosinophils # (auto) 0 uL; Hematocrit 29.5 % (36.0-46.0); Hemoglobin 9.8 g/dL (12.2-16.2); Lymphocytes % (auto) 5.8 % (10.0-50.0); Mean Corpuscular Hemoglobin 29.2 pg (28.0-32.0); Mean Corpuscular Hgb Conc. 33.1 g/dL (32.0-36.0); Monocytes # (auto) 1.1 uL; Monocytes % (auto) 6.3 % (0.0-12.0); Neutrophils # (auto) 15.4 uL; Neutrophils % (auto) 87.7 % (37.0-80.0); Platelet Count (auto) 160 10^3/uL (140-450); Red Blood Cells 3.35 10^6/uL (4.0-5.20); Red Cell Distribution Width 16.3 % (11.8-14.3); White Blood Cell 17.5 10^3/uL (4.4-10.8)
[2017-04-26 07:17] LABS: Albumin 4.1 g/dL (3.4-5.0); BUN/Creatinine Ratio 12.2; Calcium 9.9 mg/dL (8.5-10.1); Potassium 4.4 mmol/L (3.5-5.1)
[2017-04-26 07:19] LABS: Bilirubin, Total 2.1 mg/dL (0.2-1.0)
[2017-04-26] MEDS ORDERED: FUROSEMIDE 20 MG/2 ML VIAL IV ONE ×3 (08:00→15:00)
[2017-04-26] MEDS ORDERED: SODIUM BICARBONATE 8.4% INJ 50ML SYRINGE ONE (08:12)
[2017-04-26] MEDS ORDERED: SODIUM BICARBONATE 8.4 % INJ 50ML VIAL IV ONE (08:30)
[2017-04-26] MEDS ORDERED: PANTOPRAZOLE 40 MG/10 ML VIAL IV SCH (10:00)
[2017-04-26] MEDS: CHLORHEXIDINE 0.12% ORAL rinse 473ML MT SCH ×3 (10:00→21:37)
[2017-04-26] MEDS ORDERED: MORPHINE SULFATE 4 MG/ML SYR/VIAL IV PRN ×3 (10:45→16:30)
[2017-04-26] MEDS ORDERED: CHLORHEXIDINE 0.12% ORAL rinse 473ML MT ONE (10:45)
[2017-04-26] MEDS ORDERED: DEXMEDETOMIDINE HCL 400 MCG in D5W 5% 96 ML IV SCH (11:13)
[2017-04-26 14:15] LABS: Hematocrit 29.3 % (36.0-46.0); Hemoglobin 9.6 g/dL (12.2-16.2); Mean Corpuscular Hemoglobin 28.5 pg (28.0-32.0); Mean Corpuscular Hgb Conc. 32.7 g/dL (32.0-36.0); Mean Corpuscular Volume 87.1 fL (80.0-100.0); Platelet Count (auto) 155 10^3/uL (140-450); Red Blood Cells 3.36 10^6/uL (4.0-5.20); Red Cell Distribution Width 16.4 % (11.8-14.3)
[2017-04-26 14:24] LABS: Band Neutrophils % (manual) 0; Basophils % (manual) 0 (0.0-2.0); Blast Cells 0; Metamyelocytes % 0; Myelocytes % 0; Promyelocytes % 0; Reactive Lymphocytes 0
[2017-04-26 15:08] LABS: Eosinophils % (manual) 1 (0-7); Lymphocytes % (manual) 6 (10.0-50.0); Monocytes % (manual) 5 (0-12)
[2017-04-26] MEDS ORDERED: HYDROcodone-ACET 5/325MG TAB PO PRN (15:45)
[2017-04-26] MEDS ORDERED: fentaNYL CITRATE 100 MCG/2 ML VL IV PRN (15:45)
[2017-04-26] MEDS ORDERED: POTASSIUM CHL 20MEQ/100ML 100 ML IV PRN (15:45)
[2017-04-26] MEDS ORDERED: METOCLOPRAMIDE HCL 5MG/ml INJ 2ml VIAL IV PRN (15:45)
[2017-04-26] MEDS ORDERED: ZOLPIDEM TARTRATE 5 MG TAB PO PRN (15:45)
[2017-04-26] MEDS ORDERED: PROPRANOLOL HCL 1 MG/ML VIAL IV PRN (15:45)
[2017-04-26] MEDS: NOREPINEPHRINE 8 MG/250ML KIT 250 ML IV SCH (15:46)
[2017-04-26] MEDS: SODIUM CHLORIDE 0.9% 500 ML IV SCH (15:46)
[2017-04-26] MEDS ORDERED: hydrALAZINE HCL 20 MG/ML VL IV PRN (16:15)
[2017-04-26] MEDS ORDERED: ALBUMIN 25% 50 ML IV PRN (16:45)
[2017-04-26] MEDS ORDERED: INSULIN DRIP 100 UNIT/100ML 100 ML IV SCH (16:52)
[2017-04-26] MEDS ORDERED: DEXTROSE (50%) 50ML SYRG IV PRN (17:00)
[2017-04-26 17:08] LABS: BUN/Creatinine Ratio 12.9; Calcium 9.5 mg/dL (8.5-10.1); Magnesium 3.7 mg/dL (1.6-2.6); Phosphorus 2.2 mg/dL (2.5-4.90); Potassium 4.2 mmol/L (3.5-5.1)
[2017-04-26] MEDS: fentaNYL CITRATE 100 MCG/2 ML VL IV PRN ×2 (17:42→22:32)
[2017-04-26] MEDS ORDERED: SODIUM PHOSPHATES 20 MEQ in SODIUM CHL 0.9% 100 ML IV ONE (17:45)
[2017-04-26] MEDS: ONDANSETRON HCL 4 MG/2 ML VIAL IV PRN (18:02)
[2017-04-26] MEDS: HYDROcodone-ACET 7.5/325MG TAB PO PRN (19:35)
[2017-04-26 20:11] LABS: Hemoglobin 9.3 g/dL (12.2-16.2); Platelet Count (auto) 166 10^3/uL (140-450)
[2017-04-26 20:12] LABS: Hematocrit 28.3 % (36.0-46.0); Mean Corpuscular Hemoglobin 28.7 pg (28.0-32.0); Mean Corpuscular Hgb Conc. 32.8 g/dL (32.0-36.0); Mean Corpuscular Volume 87.5 fL (80.0-100.0); Red Blood Cells 3.23 10^6/uL (4.0-5.20); Red Cell Distribution Width 16.3 % (11.8-14.3)
[2017-04-26 20:39] LABS: Band Neutrophils % (manual) 0; Basophils % (manual) 0 (0.0-2.0); Blast Cells 0; Eosinophils % (manual) 0 (0-7); Metamyelocytes % 0; Myelocytes % 0; Promyelocytes % 0; Reactive Lymphocytes 0
[2017-04-26 20:46] LABS: Lymphocytes % (manual) 15 (10.0-50.0); Monocytes % (manual) 8 (0-12)
[2017-04-26 20:49] LABS: Albumin 3.7 g/dL (3.4-5.0); BUN/Creatinine Ratio 12.9; Calcium 9.9 mg/dL (8.5-10.1); Potassium 4.5 mmol/L (3.5-5.1)
[2017-04-26] MEDS: ATORVASTATIN 20 MG TAB PO SCH (21:28)
[2017-04-26] MEDS: ASCORBIC ACID 500 MG TAB PO SCH (21:28)
[2017-04-26] MEDS: DOCUSATE SOD 100 MG CAP PO SCH (21:29)
[2017-04-26] MEDS: AMIODARONE HCL 200 MG TAB PO SCH (21:29)
[2017-04-26] MEDS: METOPROLOL TARTRATE 25 MG TAB PO SCH (21:29)
[2017-04-26] MEDS ORDERED: METOPROLOL TARTRATE 25 MG TAB PO SCH (22:00)
[2017-04-26] MEDS ORDERED: ASPirin-EC 81 mg tab PO ONE (22:00)
[2017-04-26] MEDS ORDERED: ALBUMIN 25% 50 ML IV ONE (22:15)
[2017-04-27] VITALS (96 sets, daily range): BP systolic 3–158; BP diastolic 2–114
[2017-04-27 00:56] LABS: Hematocrit 28.7 % (36.0-46.0); Hemoglobin 9.2 g/dL (12.2-16.2); Red Blood Cells 3.26 10^6/uL (4.0-5.20)
[2017-04-27 00:57] LABS: Mean Corpuscular Hemoglobin 28.2 pg (28.0-32.0); Mean Corpuscular Volume 88.1 fL (80.0-100.0); Platelet Count (auto) 148 10^3/uL (140-450); Red Cell Distribution Width 16.6 % (11.8-14.3)
[2017-04-27 00:59] LABS: White Blood Cell 30.4 10^3/uL (4.4-10.8)
[2017-04-27 01:01] LABS: Band Neutrophils % (manual) 0; Basophils % (manual) 0 (0.0-2.0); Blast Cells 0; Eosinophils % (manual) 0 (0-7); Metamyelocytes % 0; Myelocytes % 0; Promyelocytes % 0; Reactive Lymphocytes 0
[2017-04-27 01:12] LABS: BUN/Creatinine Ratio 13.6; Calcium 9.8 mg/dL (8.5-10.1); Magnesium 3.4 mg/dL (1.6-2.6); Potassium 4.8 mmol/L (3.5-5.1)
[2017-04-27 01:17] LABS: Lymphocytes % (manual) 8 (10.0-50.0); Monocytes % (manual) 1 (0-12)
[2017-04-27] MEDS: ACCU-CHEK COMFORT CURVE STRIP VI SCH ×14 (01:25→23:35)
[2017-04-27] MEDS: VANCOMYCIN 1GM/250ML 250 ML IV SCH ×2 (01:31→15:00)
[2017-04-27] MEDS: NICARDIPINE 25MG/250ML BAG KIT 250 ML IV SCH ×5 (01:54→22:46)
[2017-04-27] MEDS: HYDROcodone-ACET 7.5/325MG TAB PO PRN ×2 (02:28→19:50)
[2017-04-27] MEDS: ONDANSETRON HCL 4 MG/2 ML VIAL IV PRN ×3 (02:30→19:52)
[2017-04-27] MEDS: IPRATROPIUM BROM 0.5 MG/2.5ML INH SOL NEB SCH ×6 (02:55→22:10)
[2017-04-27] MEDS: AZTREONAM 1GM INJ 1 GM in D5W 5% 50 ML IV SCH ×3 (03:04→18:09)
[2017-04-27 04:30] LABS: Hematocrit 27.3 % (36.0-46.0); Hemoglobin 8.8 g/dL (12.2-16.2); Mean Corpuscular Hemoglobin 28.6 pg (28.0-32.0); Mean Corpuscular Hgb Conc. 32.3 g/dL (32.0-36.0); Mean Corpuscular Volume 88.4 fL (80.0-100.0); Platelet Count (auto) 145 10^3/uL (140-450); Red Blood Cells 3.09 10^6/uL (4.0-5.20); Red Cell Distribution Width 16.7 % (11.8-14.3); White Blood Cell 29.2 10^3/uL (4.4-10.8)
[2017-04-27 04:31] LABS: Band Neutrophils % (manual) 0; Basophils % (manual) 0 (0.0-2.0); Blast Cells 0; Eosinophils % (manual) 0 (0-7); Metamyelocytes % 0; Myelocytes % 0; Promyelocytes % 0; Reactive Lymphocytes 0
[2017-04-27] MEDS: AMIODARONE HCL 900 MG in DEXTROSE 500 ML IV SCH (04:33)
[2017-04-27 04:45] LABS: Albumin 3.5 g/dL (3.4-5.0); BUN/Creatinine Ratio 13.1; Calcium 9.3 mg/dL (8.5-10.1); Magnesium 3.3 mg/dL (1.6-2.6); Potassium 4.5 mmol/L (3.5-5.1)
[2017-04-27 04:47] LABS: Lymphocytes % (manual) 8 (10.0-50.0); Monocytes % (manual) 2 (0-12)
[2017-04-27 04:48] LABS: Bilirubin, Total 1.1 mg/dL (0.2-1.0); Total Protein 6.6 g/dL (6.4-8.2)
[2017-04-27] MEDS: MILRINONE 20MG/100ML 100 ML IV SCH (05:24)
[2017-04-27] MEDS: FUROSEMIDE 40 MG TAB PO SCH ×2 (06:00→16:22)
[2017-04-27] MEDS: ACETYLCYSTEINE 10 %(100MG/ML) SOL 4ML NEB SCH ×3 (06:21→22:10)
[2017-04-27] MEDS ORDERED: ALBUMIN 5% 50 ML IV ONE (06:45)
[2017-04-27] MEDS: glipiZIDE 5 MG TAB PO SCH (06:45)
[2017-04-27] MEDS ORDERED: FUROSEMIDE INJECTION 100 MG in SODIUM CHL 0.9% 90 ML IV SCH (06:45)
[2017-04-27] MEDS ORDERED: FUROSEMIDE 40 MG/4 ML VIAL IV ONE (06:45)
[2017-04-27] MEDS: LEVOTHYROXINE SODIUM 100 MCG TAB PO SCH (06:48)
[2017-04-27] MEDS ORDERED: FUROSEMIDE INJECTION 250 MG in SODIUM CHL 0.9% 225 ML IV SCH (07:15)
[2017-04-27] MEDS ORDERED: ACCU-CHEK COMFORT CURVE STRIP VI SCH (08:00)
[2017-04-27] MEDS ORDERED: InsuLIN REG 1unit/0.01ml Soln (100units/ml) SC SCH (08:00)
[2017-04-27] MEDS: InsuLIN REG 1unit/0.01ml Soln (100units/ml) SC SCH ×5 (08:30→23:35)
[2017-04-27] MEDS ORDERED: DEXTROSE (50%) 50ML SYRG IV PRN (09:00)
[2017-04-27] MEDS: CHLORHEXIDINE 0.12% ORAL rinse 473ML MT SCH ×2 (09:33→21:40)
[2017-04-27] MEDS: NITROGLYCERIN 0.4MG/HR TOPICAL PATCH TD SCH (10:30)
[2017-04-27] MEDS: hydrALAZINE HCL 20 MG/ML VL IV PRN (10:44)
[2017-04-27] MEDS: ASPirin 81 mg TAB PO SCH (11:38)
[2017-04-27] MEDS: PANTOPRAZOLE 40 MG/10 ML VIAL IV SCH (11:38)
[2017-04-27] MEDS: AMIODARONE HCL 200 MG TAB PO SCH ×2 (11:38→21:40)
[2017-04-27] MEDS: METOPROLOL TARTRATE 25 MG TAB PO SCH ×2 (11:38→21:40)
[2017-04-27] MEDS: DOCUSATE SOD 100 MG CAP PO SCH ×2 (11:38→21:40)
[2017-04-27] MEDS: ASCORBIC ACID 500 MG TAB PO SCH ×2 (11:39→21:40)
[2017-04-27] MEDS: Boost Glucose Control 8 Ounces PO SCH ×2 (12:00→17:41)
[2017-04-27] MEDS ORDERED: BUMETANIDE (0.25MG/ML) 4 ML VIAL IV ONE (13:00)
[2017-04-27] MEDS: FUROSEMIDE INJECTION 250 MG in SODIUM CHL 0.9% 225 ML IV SCH (13:02)
[2017-04-27] MEDS ORDERED: BUMETANIDE (0.25 MG/ML) INJ 10ML IV ONE (13:15)
[2017-04-27] MEDS ORDERED: INSULIN NPH Isophane (HUMAN) 1unit/0.01ml Susp(100units/ml) SC ONE (16:00)
[2017-04-27] MEDS: SODIUM CHLORIDE 0.9% 1,000 ML IV SCH (16:10)
[2017-04-27 18:30] LABS: BUN/Creatinine Ratio 15.8; Calcium 6.2 mg/dL (8.5-10.1); Magnesium 2.4 mg/dL (1.6-2.6); Potassium 3.5 mmol/L (3.5-5.1)
[2017-04-27] MEDS ORDERED: CALCIUM GLUC 4.65meq/50ml D5AE 50 ML IV PRN (19:00)
[2017-04-27] MEDS ORDERED: MAGNESIUM SULFATE 1GM/100ML 100 ML IV PRN (19:00)
[2017-04-27 19:10] LABS: Albumin 2.2 g/dL (3.4-5.0)
[2017-04-27] MEDS: ATORVASTATIN 20 MG TAB PO SCH (21:39)
[2017-04-28] VITALS (81 sets, daily range): BP systolic 111–167; BP diastolic 45–87
[2017-04-28] MEDS: fentaNYL CITRATE 100 MCG/2 ML VL IV PRN (00:22)
[2017-04-28] MEDS: IPRATROPIUM BROM 0.5 MG/2.5ML INH SOL NEB SCH ×6 (02:00→22:23)
[2017-04-28] MEDS: ONDANSETRON HCL 4 MG/2 ML VIAL IV PRN ×2 (02:27→09:32)
[2017-04-28] MEDS: HYDROcodone-ACET 7.5/325MG TAB PO PRN ×3 (02:27→19:45)
[2017-04-28] MEDS: NICARDIPINE 25MG/250ML BAG KIT 250 ML IV SCH ×5 (03:46→23:46)
[2017-04-28 03:53] LABS: Hematocrit 25.4 % (36.0-46.0); Hemoglobin 8.3 g/dL (12.2-16.2); Mean Corpuscular Hgb Conc. 32.8 g/dL (32.0-36.0); Red Cell Distribution Width 16.8 % (11.8-14.3); White Blood Cell 26.8 10^3/uL (4.4-10.8)
[2017-04-28 03:57] LABS: Mean Corpuscular Hemoglobin 28.9 pg (28.0-32.0); Mean Corpuscular Volume 88.2 fL (80.0-100.0); Platelet Count (auto) 147 10^3/uL (140-450); Red Blood Cells 2.88 10^6/uL (4.0-5.20)
[2017-04-28] MEDS: InsuLIN REG 1unit/0.01ml Soln (100units/ml) SC SCH ×6 (04:00→19:52)
[2017-04-28] MEDS: ACCU-CHEK COMFORT CURVE STRIP VI SCH ×5 (04:00→19:48)
[2017-04-28 04:08] LABS: Basophils % (manual) 0 (0.0-2.0); Blast Cells 0; Eosinophils % (manual) 0 (0-7); Metamyelocytes % 0; Myelocytes % 0; Promyelocytes % 0; Reactive Lymphocytes 0
[2017-04-28 04:20] LABS: Albumin 3.1 g/dL (3.4-5.0); BUN/Creatinine Ratio 17.2; Bilirubin, Total 0.8 mg/dL (0.2-1.0); Calcium 9.1 mg/dL (8.5-10.1); Magnesium 3.3 mg/dL (1.6-2.6); Total Protein 6.3 g/dL (6.4-8.2)
[2017-04-28 04:26] LABS: Band Neutrophils % (manual) 2; Lymphocytes % (manual) 12 (10.0-50.0); Monocytes % (manual) 15 (0-12)
[2017-04-28] MEDS: FUROSEMIDE 40 MG TAB PO SCH (06:00)
[2017-04-28] MEDS: glipiZIDE 5 MG TAB PO SCH (06:28)
[2017-04-28] MEDS: LEVOTHYROXINE SODIUM 100 MCG TAB PO SCH (06:28)
[2017-04-28] MEDS: ACETYLCYSTEINE 10 %(100MG/ML) SOL 4ML NEB SCH ×3 (06:45→22:24)
[2017-04-28] MEDS: INSULIN NPH Isophane (HUMAN) 1unit/0.01ml Susp(100units/ml) SC SCH ×2 (09:15→19:48)
[2017-04-28] MEDS: Boost Glucose Control 8 Ounces PO SCH ×3 (10:17→18:47)
[2017-04-28] MEDS: DOCUSATE SOD 100 MG CAP PO SCH ×2 (10:18→22:02)
[2017-04-28] MEDS: AMIODARONE HCL 200 MG TAB PO SCH ×2 (10:18→21:59)
[2017-04-28] MEDS: ASCORBIC ACID 500 MG TAB PO SCH ×2 (10:18→22:01)
[2017-04-28] MEDS: ASPirin 81 mg TAB PO SCH (10:19)
[2017-04-28] MEDS: METOPROLOL TARTRATE 25 MG TAB PO SCH ×2 (10:19→22:01)
[2017-04-28] MEDS: PANTOPRAZOLE 40 MG/10 ML VIAL IV SCH (10:19)
[2017-04-28] MEDS: CHLORHEXIDINE 0.12% ORAL rinse 473ML MT SCH ×2 (10:19→22:02)
[2017-04-28] MEDS: NITROGLYCERIN 0.4MG/HR TOPICAL PATCH TD SCH (10:20)
[2017-04-28] MEDS: ALBUMIN 25% 100 ML IV SCH ×2 (10:36→17:38)
[2017-04-28] MEDS: FUROSEMIDE INJECTION 250 MG in SODIUM CHL 0.9% 225 ML IV SCH (13:46)
[2017-04-28] MEDS: SODIUM CHLORIDE 0.9% 1,000 ML IV SCH (16:30)
[2017-04-28] MEDS: ATORVASTATIN 20 MG TAB PO SCH (21:58)
[2017-04-29] VITALS (29 sets, daily range): BP systolic 111–164; BP diastolic 47–84
[2017-04-29] MEDS: IPRATROPIUM BROM 0.5 MG/2.5ML INH SOL NEB SCH ×6 (02:10→22:27)
[2017-04-29] MEDS: ALBUMIN 25% 100 ML IV SCH ×3 (02:28→18:46)
[2017-04-29 03:57] LABS: Basophils # (auto) 0.1 uL; Eosinophils # (auto) 0.1 uL
[2017-04-29 03:59] LABS: Basophils % (auto) 0.4 % (0.0-2.0); Eosinophils % (auto) 0.4 % (0.0-7.0); Hematocrit 24.7 % (36.0-46.0); Lymphocytes # (auto) 2.7 uL; Lymphocytes % (auto) 17.2 % (10.0-50.0); Mean Corpuscular Hemoglobin 28.5 pg (28.0-32.0); Mean Corpuscular Hgb Conc. 32.3 g/dL (32.0-36.0); Mean Corpuscular Volume 88.3 fL (80.0-100.0); Monocytes # (auto) 1.7 uL; Monocytes % (auto) 10.7 % (0.0-12.0); Neutrophils # (auto) 11.4 uL; Neutrophils % (auto) 71.3 % (37.0-80.0); Nucleated Red Blood Cells % 0.1 %; Platelet Count (auto) 123 10^3/uL (140-450); Red Cell Distribution Width 16.4 % (11.8-14.3); White Blood Cell 15.9 10^3/uL (4.4-10.8)
[2017-04-29] MEDS: InsuLIN REG 1unit/0.01ml Soln (100units/ml) SC SCH ×6 (04:00→20:00)
[2017-04-29] MEDS: ACCU-CHEK COMFORT CURVE STRIP VI SCH ×6 (04:00→20:00)
[2017-04-29 04:15] LABS: Albumin 3.8 g/dL (3.4-5.0); Calcium 8.7 mg/dL (8.5-10.1); Magnesium 3.3 mg/dL (1.6-2.6); Potassium 3.8 mmol/L (3.5-5.1)
[2017-04-29 04:17] LABS: Bilirubin, Total 0.9 mg/dL (0.2-1.0); Total Protein 6.8 g/dL (6.4-8.2)
[2017-04-29] MEDS: NICARDIPINE 25MG/250ML BAG KIT 250 ML IV SCH ×4 (04:46→19:46)
[2017-04-29] MEDS: glipiZIDE 5 MG TAB PO SCH (06:09)
[2017-04-29] MEDS: LEVOTHYROXINE SODIUM 100 MCG TAB PO SCH (06:09)
[2017-04-29] MEDS: hydrALAZINE HCL 20 MG/ML VL IV PRN (06:19)
[2017-04-29] MEDS: ACETYLCYSTEINE 10 %(100MG/ML) SOL 4ML NEB SCH ×3 (06:20→22:28)
[2017-04-29] MEDS: HYDROcodone-ACET 7.5/325MG TAB PO PRN (06:24)
[2017-04-29] MEDS: Boost Glucose Control 8 Ounces PO SCH ×3 (08:00→18:00)
[2017-04-29] MEDS: INSULIN NPH Isophane (HUMAN) 1unit/0.01ml Susp(100units/ml) SC SCH ×2 (08:00→20:00)
[2017-04-29] MEDS ORDERED: POTASSIUM CHL 20MEQ/100ML 100 ML IV ONE (09:00)
[2017-04-29] MEDS ORDERED: FUROSEMIDE INJECTION 250 MG in SODIUM CHL 0.9% 225 ML IV SCH (09:00)
[2017-04-29] MEDS: ASPirin 81 mg TAB PO SCH (10:45)
[2017-04-29] MEDS: CHLORHEXIDINE 0.12% ORAL rinse 473ML MT SCH ×2 (10:45→22:00)
[2017-04-29] MEDS: AMIODARONE HCL 200 MG TAB PO SCH ×2 (10:45→22:00)
[2017-04-29] MEDS: ENOXAPARIN SOD 30 MG/0.3 ML SYRINGE SC SCH (10:45)
[2017-04-29] MEDS: ASCORBIC ACID 500 MG TAB PO SCH ×2 (10:45→22:00)
[2017-04-29] MEDS: METOPROLOL TARTRATE 25 MG TAB PO SCH ×2 (10:45→22:00)
[2017-04-29] MEDS: PANTOPRAZOLE 40 MG/10 ML VIAL IV SCH (10:45)
[2017-04-29] MEDS: NITROGLYCERIN 0.4MG/HR TOPICAL PATCH TD SCH (10:45)
[2017-04-29] MEDS: DOCUSATE SOD 100 MG CAP PO SCH ×2 (10:45→22:00)
[2017-04-29] MEDS: ONDANSETRON HCL 4 MG/2 ML VIAL IV PRN (13:20)
[2017-04-29 17:56] LABS: Calcium 8.5 mg/dL (8.5-10.1); Potassium 3.2 mmol/L (3.5-5.1)
[2017-04-29] MEDS: POTASSIUM CHL 20MEQ/100ML 100 ML IV SCH ×2 (21:00→23:24)
[2017-04-29] MEDS: SENNA 8.6 MG TAB PO PRN (21:30)
[2017-04-29] MEDS: ATORVASTATIN 20 MG TAB PO SCH (22:00)
[2017-04-29] MEDS ORDERED: AMIODARONE HCL 900 MG in DEXTROSE 500 ML IV SCH (22:30)
[2017-04-30] VITALS (97 sets, daily range): BP systolic 91–181; BP diastolic 36–110
[2017-04-30] MEDS: NICARDIPINE 25MG/250ML BAG KIT 250 ML IV SCH ×2 (00:46→05:46)
[2017-04-30] MEDS: POTASSIUM CHL 20MEQ/100ML 100 ML IV SCH (02:15)
[2017-04-30] MEDS: ALBUMIN 25% 100 ML IV SCH ×3 (02:24→18:23)
[2017-04-30] MEDS: InsuLIN REG 1unit/0.01ml Soln (100units/ml) SC SCH ×6 (04:10→20:00)
[2017-04-30] MEDS: ACCU-CHEK COMFORT CURVE STRIP VI SCH ×6 (04:10→20:17)
[2017-04-30 04:18] LABS: Calcium 8.4 mg/dL (8.5-10.1); Potassium 3.7 mmol/L (3.5-5.1)
[2017-04-30 04:20] LABS: BUN/Creatinine Ratio 44.1
[2017-04-30] MEDS: glipiZIDE 5 MG TAB PO SCH (06:58)
[2017-04-30] MEDS: LEVOTHYROXINE SODIUM 100 MCG TAB PO SCH (06:58)
[2017-04-30] MEDS ORDERED: POTASSIUM CHL 20MEQ/100ML 100 ML IV ONE (07:30)
[2017-04-30 07:34] LABS: Basophils # (auto) 0 uL; Basophils % (auto) 0.2 % (0.0-2.0); Eosinophils # (auto) 0.2 uL; Hemoglobin 7.8 g/dL (12.2-16.2); Monocytes # (auto) 1.7 uL; Red Cell Distribution Width 16.5 % (11.8-14.3); White Blood Cell 13.1 10^3/uL (4.4-10.8)
[2017-04-30 07:36] LABS: Eosinophils % (auto) 1.6 % (0.0-7.0); Hematocrit 23.7 % (36.0-46.0); Lymphocytes # (auto) 1.9 uL; Lymphocytes % (auto) 14.2 % (10.0-50.0); Mean Corpuscular Hemoglobin 28.8 pg (28.0-32.0); Mean Corpuscular Hgb Conc. 32.9 g/dL (32.0-36.0); Mean Corpuscular Volume 87.7 fL (80.0-100.0); Monocytes % (auto) 12.9 % (0.0-12.0); Neutrophils # (auto) 9.3 uL; Neutrophils % (auto) 71.1 % (37.0-80.0); Nucleated Red Blood Cells % 0.2 %; Platelet Count (auto) 141 10^3/uL (140-450)
[2017-04-30] MEDS: INSULIN NPH Isophane (HUMAN) 1unit/0.01ml Susp(100units/ml) SC SCH ×2 (08:00→20:00)
[2017-04-30] MEDS: Boost Glucose Control 8 Ounces PO SCH ×3 (08:00→18:00)
[2017-04-30] MEDS: IPRATROPIUM BROM 0.5 MG/2.5ML INH SOL NEB SCH ×6 (08:02→22:15)
[2017-04-30] MEDS: ACETYLCYSTEINE 10 %(100MG/ML) SOL 4ML NEB SCH ×3 (08:02→22:15)
[2017-04-30] MEDS: ASPirin 81 mg TAB PO SCH (09:59)
[2017-04-30] MEDS: FUROSEMIDE 20 MG/2 ML VIAL IV SCH (09:59)
[2017-04-30] MEDS: CHLORHEXIDINE 0.12% ORAL rinse 473ML MT SCH ×2 (09:59→21:56)
[2017-04-30] MEDS: METOPROLOL TARTRATE 50 MG TAB PO SCH ×2 (09:59→21:48)
[2017-04-30] MEDS: PANTOPRAZOLE 40 MG/10 ML VIAL IV SCH (09:59)
[2017-04-30] MEDS: DOCUSATE SOD 100 MG CAP PO SCH ×2 (09:59→21:46)
[2017-04-30] MEDS ORDERED: AMIODARONE HCL 200 MG TAB PO SCH (10:00)
[2017-04-30] MEDS: NITROGLYCERIN 0.4MG/HR TOPICAL PATCH TD SCH (10:00)
[2017-04-30] MEDS: ENOXAPARIN SOD 30 MG/0.3 ML SYRINGE SC SCH (10:00)
[2017-04-30] MEDS: AMIODARONE HCL 200 MG TAB PO SCH ×2 (10:00→21:47)
[2017-04-30] MEDS: ASCORBIC ACID 500 MG TAB PO SCH ×2 (10:00→21:47)
[2017-04-30 12:26] LABS: Basophils # (auto) 0 uL; Eosinophils # (auto) 0.2 uL; Lymphocytes # (auto) 2.3 uL; Neutrophils # (auto) 14.7 uL
[2017-04-30 12:28] LABS: Basophils % (auto) 0.1 % (0.0-2.0); Eosinophils % (auto) 0.8 % (0.0-7.0); Mean Corpuscular Hemoglobin 28.5 pg (28.0-32.0); Mean Corpuscular Hgb Conc. 32.8 g/dL (32.0-36.0); Monocytes # (auto) 2.1 uL; Neutrophils % (auto) 76.1 % (37.0-80.0); Nucleated Red Blood Cells % 0.4 %; Platelet Count (auto) 155 10^3/uL (140-450); Red Blood Cells 2.18 10^6/uL (4.0-5.20); Red Cell Distribution Width 16.6 % (11.8-14.3); White Blood Cell 19.2 10^3/uL (4.4-10.8)
[2017-04-30 12:35] LABS: Hemoglobin 6.2 g/dL (12.2-16.2)
[2017-04-30 12:40] LABS: INR 1.15 (0.9-1.15); Partial Thromboplastin Time 23.1 sec (22.64-33.71); Prothrombin Time 12.5 sec (9.37-12.3)
[2017-04-30] MEDS: SODIUM CHLORIDE 0.9% 1,000 ML IV SCH (16:30)
[2017-04-30] MEDS ORDERED: FUROSEMIDE 40 MG/4 ML VIAL IV ONE (18:00)
[2017-04-30 18:33] LABS: Hematocrit 24.4 % (36.0-46.0); Mean Corpuscular Hemoglobin 28.2 pg (28.0-32.0); Mean Corpuscular Hgb Conc. 32.6 g/dL (32.0-36.0); Mean Corpuscular Volume 86.6 fL (80.0-100.0); Platelet Count (auto) 136 10^3/uL (140-450); Red Blood Cells 2.82 10^6/uL (4.0-5.20); Red Cell Distribution Width 16.5 % (11.8-14.3); White Blood Cell 18.5 10^3/uL (4.4-10.8)
[2017-04-30 18:43] LABS: Band Neutrophils % (manual) 0; Basophils % (manual) 0 (0.0-2.0); Eosinophils % (manual) 0 (0-7); Metamyelocytes % 0; Myelocytes % 0
[2017-04-30 18:44] LABS: Blast Cells 0; Promyelocytes % 0; Reactive Lymphocytes 0
[2017-04-30] MEDS: PHENYLEPHRINE IV 250 ML IV SCH (19:36)
[2017-04-30 21:46] LABS: Lymphocytes % (manual) 12 (10.0-50.0); Monocytes % (manual) 10 (0-12)
[2017-04-30] MEDS: HYDROcodone-ACET 7.5/325MG TAB PO PRN (21:47)
[2017-04-30] MEDS: ATORVASTATIN 20 MG TAB PO SCH (21:47)
[2017-05-01] VITALS (70 sets, daily range): BP systolic 94–165; BP diastolic 29–95
[2017-05-01 00:37] LABS: Hemoglobin 9.6 g/dL (12.2-16.2)
[2017-05-01] MEDS: ALBUMIN 25% 100 ML IV SCH ×2 (01:54→13:23)
[2017-05-01] MEDS: IPRATROPIUM BROM 0.5 MG/2.5ML INH SOL NEB SCH ×4 (02:00→22:00)
[2017-05-01 04:00] LABS: Basophils # (auto) 0 uL; Basophils % (auto) 0.1 % (0.0-2.0); Eosinophils # (auto) 0.2 uL; Eosinophils % (auto) 1.3 % (0.0-7.0); Hematocrit 28.7 % (36.0-46.0); Hemoglobin 9.6 g/dL (12.2-16.2); Lymphocytes # (auto) 2.4 uL; Lymphocytes % (auto) 13.2 % (10.0-50.0); Mean Corpuscular Hemoglobin 29.1 pg (28.0-32.0); Mean Corpuscular Hgb Conc. 33.3 g/dL (32.0-36.0); Mean Corpuscular Volume 87.3 fL (80.0-100.0); Monocytes # (auto) 2.3 uL; Monocytes % (auto) 12.6 % (0.0-12.0); Neutrophils # (auto) 13.2 uL; Neutrophils % (auto) 72.8 % (37.0-80.0); Nucleated Red Blood Cells % 0.9 %; Platelet Count (auto) 128 10^3/uL (140-450); Red Blood Cells 3.28 10^6/uL (4.0-5.20); Red Cell Distribution Width 15.8 % (11.8-14.3); White Blood Cell 18.1 10^3/uL (4.4-10.8)
[2017-05-01] MEDS: ACCU-CHEK COMFORT CURVE STRIP VI SCH ×7 (04:00→23:41)
[2017-05-01] MEDS: InsuLIN REG 1unit/0.01ml Soln (100units/ml) SC SCH ×7 (04:00→23:41)
[2017-05-01 04:17] LABS: INR 1.16 (0.9-1.15); Prothrombin Time 12.7 sec (9.37-12.3)
[2017-05-01 04:37] LABS: Albumin 4.4 g/dL (3.4-5.0); BUN/Creatinine Ratio 49.4; Bilirubin, Total 2.5 mg/dL (0.2-1.0); Calcium 8.2 mg/dL (8.5-10.1); Magnesium 3.3 mg/dL (1.6-2.6); Total Protein 6.8 g/dL (6.4-8.2)
[2017-05-01] MEDS: LEVOTHYROXINE SODIUM 100 MCG TAB PO SCH (06:41)
[2017-05-01] MEDS: glipiZIDE 5 MG TAB PO SCH (06:41)
[2017-05-01] MEDS: ACETYLCYSTEINE 10 %(100MG/ML) SOL 4ML NEB SCH ×2 (06:53→19:06)
[2017-05-01] MEDS: Boost Glucose Control 8 Ounces PO SCH ×3 (08:00→18:19)
[2017-05-01] MEDS: INSULIN NPH Isophane (HUMAN) 1unit/0.01ml Susp(100units/ml) SC SCH ×2 (08:30→20:50)
[2017-05-01] MEDS: POTASSIUM CHL 20 Meq TABLET PO ONE ×2 (09:15→15:27)
[2017-05-01] MEDS: PANTOPRAZOLE 40 MG/10 ML VIAL IV SCH (09:53)
[2017-05-01 10:13] LABS: Basophils # (auto) 0 uL; Basophils % (auto) 0.1 % (0.0-2.0); Eosinophils # (auto) 0.2 uL; Eosinophils % (auto) 1.4 % (0.0-7.0); Hematocrit 26.5 % (36.0-46.0); Hemoglobin 8.9 g/dL (12.2-16.2); Lymphocytes # (auto) 1.7 uL; Lymphocytes % (auto) 10.8 % (10.0-50.0); Mean Corpuscular Hemoglobin 29.1 pg (28.0-32.0); Mean Corpuscular Hgb Conc. 33.6 g/dL (32.0-36.0); Mean Corpuscular Volume 86.7 fL (80.0-100.0); Monocytes # (auto) 1.9 uL; Monocytes % (auto) 11.7 % (0.0-12.0); Neutrophils # (auto) 12.1 uL; Nucleated Red Blood Cells % 0.9 %; Platelet Count (auto) 130 10^3/uL (140-450); Red Blood Cells 3.05 10^6/uL (4.0-5.20); Red Cell Distribution Width 15.7 % (11.8-14.3); White Blood Cell 15.9 10^3/uL (4.4-10.8)
[2017-05-01] MEDS ORDERED: POTASSIUM CHL 20MEQ/100ML 100 ML IV ONE (10:15)
[2017-05-01] MEDS ORDERED: ceFAZolin 1GM VL ONE (10:46)
[2017-05-01] MEDS ORDERED: PROTAMINE SULFATE 10 MG/ML 5ML VIAL IV ONE (10:46)
[2017-05-01] MEDS ORDERED: HEPARIN 1,000 UNITS/ml 1ML VIAL ONE ×2 (10:47→10:56)
[2017-05-01] MEDS ORDERED: HEPARIN SODIUM (PORCINE) 5000 UNITS/ML 1ML VIAL ONE (10:47)
[2017-05-01] MEDS ORDERED: GELATIN 1 SPONGE SIZE 50 TOP ONE (10:47)
[2017-05-01] MEDS ORDERED: GELATIN 1 SPONGE SIZE 100 TOP ONE (10:47)
[2017-05-01] MEDS ORDERED: POVIDONE IODINE 10 % TOPICAL OINT 30GM TOP ONE (10:48)
[2017-05-01] MEDS ORDERED: PROPOFOL 10 MG/ML 20 ML IV ONE (11:12)
[2017-05-01] MEDS ORDERED: MIDAZOLAM HCL 1MG/1ML-2 ML VIAL ONE (11:12)
[2017-05-01] MEDS ORDERED: fentaNYL CITRATE 100 MCG/2 ML VL ONE (11:12)
[2017-05-01] MEDS ORDERED: ROCURONIUM 10MG/ML 10ML VIAL IV ONE (11:14)
[2017-05-01] MEDS ORDERED: POTASSIUM CHL 20 Meq TABLET PO ONE (12:00)
[2017-05-01] MEDS ORDERED: NEOSTIGMINE 1 MG/ML INJ (10mg/10ML VIAL) ONE (12:04)
[2017-05-01] MEDS ORDERED: GLYCOPYRROLATE 0.2 MG/ML 1ML VIAL ONE (12:04)
[2017-05-01] MEDS: FUROSEMIDE 20 MG/2 ML VIAL IV SCH (13:22)
[2017-05-01] MEDS: DOCUSATE SOD 100 MG CAP PO SCH ×2 (13:22→22:15)
[2017-05-01] MEDS: CHLORHEXIDINE 0.12% ORAL rinse 473ML MT SCH ×2 (13:23→22:15)
[2017-05-01] MEDS: AMIODARONE HCL 200 MG TAB PO SCH ×2 (13:23→22:16)
[2017-05-01] MEDS: METOPROLOL TARTRATE 50 MG TAB PO SCH ×2 (13:23→22:16)
[2017-05-01] MEDS: ASCORBIC ACID 500 MG TAB PO SCH (13:24)
[2017-05-01] MEDS: NITROGLYCERIN 0.4MG/HR TOPICAL PATCH TD SCH (14:16)
[2017-05-01] MEDS: HYDROcodone-ACET 7.5/325MG TAB PO PRN ×2 (14:35→20:59)
[2017-05-01] MEDS: SODIUM CHLORIDE 0.9% 1,000 ML IV SCH (15:13)
[2017-05-01] MEDS: PHENYLEPHRINE IV 250 ML IV SCH (16:23)
[2017-05-01 17:49] LABS: BUN/Creatinine Ratio 49.4; Calcium 7.6 mg/dL (8.5-10.1); Potassium 3.3 mmol/L (3.5-5.1)
[2017-05-01] MEDS: POTASSIUM CHL 20MEQ/100ML 100 ML IV SCH ×3 (19:53→23:33)
[2017-05-01] MEDS: ATORVASTATIN 20 MG TAB PO SCH (22:17)
[2017-05-02] VITALS (31 sets, daily range): BP systolic 87–148; BP diastolic 32–97
[2017-05-02] MEDS: fentaNYL CITRATE 100 MCG/2 ML VL IV PRN (00:54)
[2017-05-02] MEDS: IPRATROPIUM BROM 0.5 MG/2.5ML INH SOL NEB SCH ×6 (02:00→22:20)
[2017-05-02 03:49] LABS: Hemoglobin 7.9 g/dL (12.2-16.2)
[2017-05-02 03:53] LABS: Mean Corpuscular Hemoglobin 28.8 pg (28.0-32.0); Mean Corpuscular Hgb Conc. 33.1 g/dL (32.0-36.0); Mean Corpuscular Volume 87.2 fL (80.0-100.0); Platelet Count (auto) 170 10^3/uL (140-450); Red Blood Cells 2.75 10^6/uL (4.0-5.20); Red Cell Distribution Width 15.8 % (11.8-14.3); White Blood Cell 21.2 10^3/uL (4.4-10.8)
[2017-05-02] MEDS: InsuLIN REG 1unit/0.01ml Soln (100units/ml) SC SCH ×5 (04:00→20:13)
[2017-05-02] MEDS: ACCU-CHEK COMFORT CURVE STRIP VI SCH ×5 (04:00→20:07)
[2017-05-02 04:02] LABS: Calcium 7.8 mg/dL (8.5-10.1); Potassium 4.1 mmol/L (3.5-5.1)
[2017-05-02 04:05] LABS: Albumin 3.6 g/dL (3.4-5.0); BUN/Creatinine Ratio 48.8; Magnesium 2.9 mg/dL (1.6-2.6)
[2017-05-02 04:13] LABS: Bilirubin, Total 1.4 mg/dL (0.2-1.0); Total Protein 6.1 g/dL (6.4-8.2)
[2017-05-02 04:14] LABS: Basophils % (manual) 0 (0.0-2.0); Blast Cells 0; Metamyelocytes % 0; Myelocytes % 0; Promyelocytes % 0; Reactive Lymphocytes 0
[2017-05-02 04:56] LABS: Band Neutrophils % (manual) 5; Eosinophils % (manual) 3 (0-7); Lymphocytes % (manual) 15 (10.0-50.0); Monocytes % (manual) 7 (0-12)
[2017-05-02] MEDS: ACETYLCYSTEINE 10 %(100MG/ML) SOL 4ML NEB SCH ×3 (06:22→22:20)
[2017-05-02] MEDS: LEVOTHYROXINE SODIUM 100 MCG TAB PO SCH (06:30)
[2017-05-02] MEDS: AMIODARONE HCL 200 MG TAB PO SCH ×2 (06:30→19:00)
[2017-05-02] MEDS: glipiZIDE 5 MG TAB PO SCH (07:00)
[2017-05-02] MEDS: Boost Glucose Control 8 Ounces PO SCH ×3 (08:00→18:00)
[2017-05-02] MEDS: CHLORHEXIDINE 0.12% ORAL rinse 473ML MT SCH ×2 (10:00→22:00)
[2017-05-02] MEDS: DOCUSATE SOD 100 MG CAP PO SCH ×2 (10:02→22:48)
[2017-05-02] MEDS: PANTOPRAZOLE 40 MG/10 ML VIAL IV SCH (10:02)
[2017-05-02] MEDS: ASPirin-EC 81 mg tab PO SCH (10:02)
[2017-05-02] MEDS: NITROGLYCERIN 0.4MG/HR TOPICAL PATCH TD SCH (10:04)
[2017-05-02] MEDS: METOPROLOL TARTRATE 50 MG TAB PO SCH ×2 (10:04→22:49)
[2017-05-02] MEDS: INSULIN NPH Isophane (HUMAN) 1unit/0.01ml Susp(100units/ml) SC SCH ×2 (10:13→20:18)
[2017-05-02] MEDS: HYDROcodone-ACET 7.5/325MG TAB PO PRN ×2 (10:50→23:24)
[2017-05-02] MEDS ORDERED: FUROSEMIDE 40 MG/4 ML VIAL IV ONE (11:15)
[2017-05-02 14:19] LABS: BUN/Creatinine Ratio 55.1; Calcium 7.9 mg/dL (8.5-10.1); Potassium 3.8 mmol/L (3.5-5.1)
[2017-05-02] MEDS: PHENYLEPHRINE IV 250 ML IV SCH (16:23)
[2017-05-02] MEDS ORDERED: FLUCONAZOLE 100 MG TAB PO ONE (18:15)
[2017-05-02] MEDS ORDERED: LEVOFLOXACIN 500 MG TAB PO ONE (18:15)
[2017-05-02] MEDS: ATORVASTATIN 20 MG TAB PO SCH (22:48)
[2017-05-03] VITALS (75 sets, daily range): BP systolic 92–153; BP diastolic 38–88
[2017-05-03] MEDS: ACCU-CHEK COMFORT CURVE STRIP VI SCH ×5 (00:07→21:54)
[2017-05-03] MEDS: IPRATROPIUM BROM 0.5 MG/2.5ML INH SOL NEB SCH ×6 (02:00→22:35)
[2017-05-03] MEDS: InsuLIN REG 1unit/0.01ml Soln (100units/ml) SC SCH ×5 (04:00→21:54)
[2017-05-03 04:11] LABS: Hematocrit 23.6 % (36.0-46.0); Hemoglobin 7.7 g/dL (12.2-16.2); Mean Corpuscular Hemoglobin 28.6 pg (28.0-32.0); Mean Corpuscular Hgb Conc. 32.4 g/dL (32.0-36.0); Mean Corpuscular Volume 88.5 fL (80.0-100.0); Platelet Count (auto) 191 10^3/uL (140-450); Red Blood Cells 2.67 10^6/uL (4.0-5.20); Red Cell Distribution Width 15.9 % (11.8-14.3); White Blood Cell 16.8 10^3/uL (4.4-10.8)
[2017-05-03 04:19] LABS: Basophils % (manual) 0 (0.0-2.0); Blast Cells 0; Metamyelocytes % 0; Myelocytes % 0; Promyelocytes % 0; Reactive Lymphocytes 0
[2017-05-03 04:26] LABS: Albumin 3.3 g/dL (3.4-5.0); BUN/Creatinine Ratio 55.6; Bilirubin, Total 1.9 mg/dL (0.2-1.0); Magnesium 3.1 mg/dL (1.6-2.6); Potassium 3.6 mmol/L (3.5-5.1); Total Protein 6.4 g/dL (6.4-8.2)
[2017-05-03 05:24] LABS: Band Neutrophils % (manual) 0; Eosinophils % (manual) 4 (0-7); Lymphocytes % (manual) 14 (10.0-50.0); Monocytes % (manual) 7 (0-12)
[2017-05-03] MEDS: AMIODARONE HCL 200 MG TAB PO SCH (06:48)
[2017-05-03] MEDS: LEVOTHYROXINE SODIUM 100 MCG TAB PO SCH (06:49)
[2017-05-03] MEDS: glipiZIDE 5 MG TAB PO SCH (06:50)
[2017-05-03] MEDS: ACETYLCYSTEINE 10 %(100MG/ML) SOL 4ML NEB SCH ×3 (07:16→22:35)
[2017-05-03] MEDS: Boost Glucose Control 8 Ounces PO SCH ×3 (08:00→17:47)
[2017-05-03] MEDS: INSULIN NPH Isophane (HUMAN) 1unit/0.01ml Susp(100units/ml) SC SCH ×2 (08:00→19:51)
[2017-05-03] MEDS ORDERED: VITAMINS A & D (TOPICAL) OINT 5GM TOP ONE (08:42)
[2017-05-03] MEDS: PANTOPRAZOLE 40 MG/10 ML VIAL IV SCH (10:00)
[2017-05-03] MEDS ORDERED: LEVOFLOXACIN 250 MG TAB PO SCH (10:00)
[2017-05-03] MEDS: DOCUSATE SOD 100 MG CAP PO SCH ×2 (10:00→21:46)
[2017-05-03] MEDS: NITROGLYCERIN 0.4MG/HR TOPICAL PATCH TD SCH (10:00)
[2017-05-03] MEDS: FUROSEMIDE 20 MG/2 ML VIAL IV SCH (10:00)
[2017-05-03] MEDS: CHLORHEXIDINE 0.12% ORAL rinse 473ML MT SCH ×2 (10:00→22:00)
[2017-05-03] MEDS: FLUCONAZOLE 100 MG TAB PO SCH (10:00)
[2017-05-03] MEDS: METOPROLOL TARTRATE 50 MG TAB PO SCH ×2 (10:00→21:54)
[2017-05-03] MEDS: ASPirin-EC 81 mg tab PO SCH (10:00)
[2017-05-03] MEDS ORDERED: DEXTROSE (50%) 50ML SYRG IV PRN (11:00)
[2017-05-03] MEDS ORDERED: LACTULOSE 20Gm/30ML SOLN PO PRN (11:00)
[2017-05-03] MEDS: DOXYCYCLINE 100 MG TAB/CAP PO SCH ×2 (11:00→21:45)
[2017-05-03] MEDS ORDERED: POTASSIUM CHL 20 Meq TABLET PO ONE ×2 (11:15→11:23)
[2017-05-03] MEDS ORDERED: POTASSIUM CHL 20 Meq TABLET PO PRN (11:15)
[2017-05-03] MEDS: SENNA 8.6 MG TAB PO PRN (11:28)
[2017-05-03] MEDS ORDERED: SODIUM FERR GLUC 62.5MG/5ML 125 MG in SODIUM CHL 0.9% 100 ML IV SCH ×3 (12:00→17:00)
[2017-05-03 17:08] LABS: Hematocrit 25.9 % (36.0-46.0); Hemoglobin 8.3 g/dL (12.2-16.2)
[2017-05-03] MEDS: HYDROcodone-ACET 7.5/325MG TAB PO PRN (17:26)
[2017-05-03] MEDS: FERROUS SULFATE 325 MG TAB PO SCH ×2 (18:11→21:46)
[2017-05-03] MEDS: ASCORBIC ACID 500 MG TAB PO SCH (18:11)
[2017-05-03] MEDS ORDERED: diphenhdrAMINE HCL 25 MG CAP PO ONE (19:20)
[2017-05-03] MEDS ORDERED: diphenhdrAMINE HCL 25 MG CAP PO PRN (19:30)
[2017-05-03] MEDS: ATORVASTATIN 20 MG TAB PO SCH (21:46)
[2017-05-04] VITALS (62 sets, daily range): BP systolic 114–161; BP diastolic 41–101
[2017-05-04] MEDS: IPRATROPIUM BROM 0.5 MG/2.5ML INH SOL NEB SCH ×6 (03:22→22:27)
[2017-05-04 04:59] LABS: Hemoglobin 8.2 g/dL (12.2-16.2); Mean Corpuscular Hgb Conc. 32.4 g/dL (32.0-36.0)
[2017-05-04 05:02] LABS: Hematocrit 25.4 % (36.0-46.0); Mean Corpuscular Hemoglobin 29.1 pg (28.0-32.0); Mean Corpuscular Volume 89.7 fL (80.0-100.0); Platelet Count (auto) 237 10^3/uL (140-450); Red Blood Cells 2.83 10^6/uL (4.0-5.20); Red Cell Distribution Width 16.3 % (11.8-14.3)
[2017-05-04 05:08] LABS: Basophils % (manual) 0 (0.0-2.0); Blast Cells 0; Metamyelocytes % 0; Myelocytes % 0; Promyelocytes % 0; Reactive Lymphocytes 0
[2017-05-04 05:15] LABS: Potassium 3.6 mmol/L (3.5-5.1)
[2017-05-04 05:18] LABS: Albumin 3.4 g/dL (3.4-5.0); BUN/Creatinine Ratio 54.9; Calcium 7.8 mg/dL (8.5-10.1); Magnesium 2.9 mg/dL (1.6-2.6)
[2017-05-04 05:21] LABS: Bilirubin, Total 2.1 mg/dL (0.2-1.0); Total Protein 6.7 g/dL (6.4-8.2)
[2017-05-04] MEDS: FERROUS SULFATE 325 MG TAB PO SCH (06:13)
[2017-05-04] MEDS: InsuLIN REG 1unit/0.01ml Soln (100units/ml) SC SCH ×4 (06:14→21:37)
[2017-05-04] MEDS: ACCU-CHEK COMFORT CURVE STRIP VI SCH ×4 (06:14→21:35)
[2017-05-04 06:21] LABS: Band Neutrophils % (manual) 2; Eosinophils % (manual) 2 (0-7); Lymphocytes % (manual) 3 (10.0-50.0); Monocytes % (manual) 5 (0-12)
[2017-05-04] MEDS: glipiZIDE 5 MG TAB PO SCH (06:26)
[2017-05-04] MEDS: LEVOTHYROXINE SODIUM 100 MCG TAB PO SCH (06:26)
[2017-05-04] MEDS: ACETYLCYSTEINE 10 %(100MG/ML) SOL 4ML NEB SCH ×3 (06:40→22:26)
[2017-05-04] MEDS ORDERED: POTASSIUM CHL 20 Meq TABLET PO ONE ×2 (07:15→10:30)
[2017-05-04] MEDS: Boost Glucose Control 8 Ounces PO SCH ×3 (08:00→17:57)
[2017-05-04] MEDS: INSULIN NPH Isophane (HUMAN) 1unit/0.01ml Susp(100units/ml) SC SCH ×2 (08:00→20:00)
[2017-05-04] MEDS ORDERED: MORPHINE SULFATE 4 MG/ML SYR/VIAL IV PRN (08:15)
[2017-05-04] MEDS ORDERED: fentaNYL CITRATE 100 MCG/2 ML VL IV PRN (08:15)
[2017-05-04] MEDS ORDERED: HYDROCORTONE 1% TOPICAL CREAM 30 GM TUBE TOP SCH (09:00)
[2017-05-04] MEDS: POTASSIUM CHL 20 Meq TABLET PO SCH (10:00)
[2017-05-04] MEDS: DOXYCYCLINE 100 MG TAB/CAP PO SCH (10:00)
[2017-05-04] MEDS: FUROSEMIDE 20 MG/2 ML VIAL IV SCH (10:00)
[2017-05-04] MEDS: ASPirin-EC 81 mg tab PO SCH (10:00)
[2017-05-04] MEDS: METOPROLOL TARTRATE 50 MG TAB PO SCH ×2 (10:00→21:35)
[2017-05-04] MEDS: PANTOPRAZOLE 40 MG/10 ML VIAL IV SCH (10:00)
[2017-05-04] MEDS: AMIODARONE HCL 200 MG TAB PO SCH (10:00)
[2017-05-04] MEDS: CHLORHEXIDINE 0.12% ORAL rinse 473ML MT SCH ×2 (10:00→21:35)
[2017-05-04] MEDS: FLUCONAZOLE 100 MG TAB PO SCH (10:00)
[2017-05-04] MEDS: ASCORBIC ACID 500 MG TAB PO SCH (10:01)
[2017-05-04] MEDS: NITROGLYCERIN 0.4MG/HR TOPICAL PATCH TD SCH (10:01)
[2017-05-04] MEDS: HYDROcodone-ACET 7.5/325MG TAB PO PRN ×2 (10:03→16:38)
[2017-05-04] MEDS: HYDROCORTONE 1% TOPICAL CREAM 30 GM TUBE TOP PRN (17:18)
[2017-05-04] MEDS: MEROPENEM 1gm/20ml IVPUSH 20 ML IV SCH (18:30)
[2017-05-04 18:52] LABS: BUN/Creatinine Ratio 56.1; Calcium 8.2 mg/dL (8.5-10.1)
[2017-05-04] MEDS ORDERED: LEVOFLOXACIN 750MG 150 ML IV SCH (19:00)
[2017-05-04] MEDS ORDERED: MICAFUNGIN SODIUM 150 MG in SODIUM CHL 0.9% 100 ML IV ONE (21:30)
[2017-05-04] MEDS: ATORVASTATIN 20 MG TAB PO SCH (21:35)
[2017-05-05] VITALS (62 sets, daily range): BP systolic 92–169; BP diastolic 42–112
[2017-05-05] MEDS: HYDROcodone-ACET 7.5/325MG TAB PO PRN ×3 (00:27→19:16)
[2017-05-05] MEDS: IPRATROPIUM BROM 0.5 MG/2.5ML INH SOL NEB SCH ×6 (02:00→22:39)
[2017-05-05] MEDS: MEROPENEM 1gm/20ml IVPUSH 20 ML IV SCH ×3 (02:21→18:19)
[2017-05-05] MEDS: ACETYLCYSTEINE 10 %(100MG/ML) SOL 4ML NEB SCH ×3 (06:08→22:39)
[2017-05-05] MEDS: glipiZIDE 5 MG TAB PO SCH (06:31)
[2017-05-05] MEDS: LEVOTHYROXINE SODIUM 100 MCG TAB PO SCH (06:31)
[2017-05-05] MEDS: InsuLIN REG 1unit/0.01ml Soln (100units/ml) SC SCH ×4 (06:31→21:37)
[2017-05-05] MEDS: ACCU-CHEK COMFORT CURVE STRIP VI SCH ×4 (06:31→21:32)
[2017-05-05] MEDS: Boost Glucose Control 8 Ounces PO SCH ×3 (07:57→18:15)
[2017-05-05] MEDS: INSULIN NPH Isophane (HUMAN) 1unit/0.01ml Susp(100units/ml) SC SCH ×2 (07:57→19:46)
[2017-05-05] MEDS: CHLORHEXIDINE 0.12% ORAL rinse 473ML MT SCH ×2 (10:09→21:32)
[2017-05-05] MEDS: PANTOPRAZOLE 40 MG/10 ML VIAL IV SCH (10:09)
[2017-05-05] MEDS: POTASSIUM CHL 20 Meq TABLET PO SCH (10:12)
[2017-05-05] MEDS: ASPirin-EC 81 mg tab PO SCH (10:12)
[2017-05-05] MEDS: METOPROLOL TARTRATE 50 MG TAB PO SCH ×2 (10:12→21:32)
[2017-05-05] MEDS: AMIODARONE HCL 200 MG TAB PO SCH (10:12)
[2017-05-05] MEDS: ASCORBIC ACID 500 MG TAB PO SCH (10:13)
[2017-05-05] MEDS: FUROSEMIDE 20 MG/2 ML VIAL IV SCH (10:13)
[2017-05-05] MEDS: NITROGLYCERIN 0.4MG/HR TOPICAL PATCH TD SCH (10:13)
[2017-05-05] MEDS: MICAFUNGIN SODIUM 100 MG in SODIUM CHL 0.9% 100 ML IV SCH (12:00)
[2017-05-05 13:14] LABS: BUN/Creatinine Ratio 47.9; Potassium 4.4 mmol/L (3.5-5.1)
[2017-05-05] MEDS: ATORVASTATIN 20 MG TAB PO SCH (21:32)
[2017-05-05] MEDS: HYDROCORTONE 1% TOPICAL CREAM 30 GM TUBE TOP PRN (21:33)
[2017-05-05] MEDS: SENNA 8.6 MG TAB PO PRN (22:23)
[2017-05-06] VITALS (19 sets, daily range): BP systolic 120–172; BP diastolic 40–98
[2017-05-06] MEDS: HYDROcodone-ACET 7.5/325MG TAB PO PRN ×3 (02:23→19:28)
[2017-05-06] MEDS: MEROPENEM 1gm/20ml IVPUSH 20 ML IV SCH ×3 (02:30→18:17)
[2017-05-06] MEDS: IPRATROPIUM BROM 0.5 MG/2.5ML INH SOL NEB SCH ×6 (02:34→22:07)
[2017-05-06 04:07] LABS: Basophils # (auto) 0 uL; Basophils % (auto) 0.1 % (0.0-2.0); Eosinophils # (auto) 0.5 uL; Eosinophils % (auto) 3.1 % (0.0-7.0); Hematocrit 26.1 % (36.0-46.0); Hemoglobin 8.5 g/dL (12.2-16.2); Lymphocytes # (auto) 1.5 uL; Lymphocytes % (auto) 9.2 % (10.0-50.0); Mean Corpuscular Hgb Conc. 32.4 g/dL (32.0-36.0); Mean Corpuscular Volume 89.6 fL (80.0-100.0); Monocytes # (auto) 1.3 uL; Monocytes % (auto) 8.2 % (0.0-12.0); Neutrophils # (auto) 12.9 uL; Neutrophils % (auto) 79.4 % (37.0-80.0); Nucleated Red Blood Cells % 0.3 %; Platelet Count (auto) 261 10^3/uL (140-450); Red Blood Cells 2.92 10^6/uL (4.0-5.20); Red Cell Distribution Width 16.7 % (11.8-14.3); White Blood Cell 16.2 10^3/uL (4.4-10.8)
[2017-05-06 04:11] LABS: BUN/Creatinine Ratio 47.7; Bilirubin, Total 2.3 mg/dL (0.2-1.0); Calcium 8.1 mg/dL (8.5-10.1); Magnesium 2.8 mg/dL (1.6-2.6); Potassium 4.4 mmol/L (3.5-5.1); Total Protein 6.9 g/dL (6.4-8.2)
[2017-05-06] MEDS: ACETYLCYSTEINE 10 %(100MG/ML) SOL 4ML NEB SCH ×3 (06:03→22:07)
[2017-05-06] MEDS: InsuLIN REG 1unit/0.01ml Soln (100units/ml) SC SCH ×4 (06:51→21:51)
[2017-05-06] MEDS: ACCU-CHEK COMFORT CURVE STRIP VI SCH ×4 (06:51→21:51)
[2017-05-06] MEDS: LEVOTHYROXINE SODIUM 100 MCG TAB PO SCH (06:52)
[2017-05-06] MEDS: glipiZIDE 5 MG TAB PO SCH (06:52)
[2017-05-06] MEDS: INSULIN NPH Isophane (HUMAN) 1unit/0.01ml Susp(100units/ml) SC SCH ×2 (09:04→19:39)
[2017-05-06] MEDS: Boost Glucose Control 8 Ounces PO SCH ×3 (09:05→18:35)
[2017-05-06] MEDS: FUROSEMIDE 20 MG/2 ML VIAL IV SCH (09:50)
[2017-05-06] MEDS: PANTOPRAZOLE 40 MG/10 ML VIAL IV SCH (09:50)
[2017-05-06] MEDS: METOPROLOL TARTRATE 50 MG TAB PO SCH ×2 (09:51→21:52)
[2017-05-06] MEDS: ASCORBIC ACID 500 MG TAB PO SCH (09:51)
[2017-05-06] MEDS: POTASSIUM CHL 20 Meq TABLET PO SCH (09:51)
[2017-05-06] MEDS: AMIODARONE HCL 200 MG TAB PO SCH (09:52)
[2017-05-06] MEDS: ASPirin-EC 81 mg tab PO SCH (09:52)
[2017-05-06] MEDS: NITROGLYCERIN 0.4MG/HR TOPICAL PATCH TD SCH (09:53)
[2017-05-06] MEDS: MICAFUNGIN SODIUM 100 MG in SODIUM CHL 0.9% 100 ML IV SCH (09:58)
[2017-05-06] MEDS: CHLORHEXIDINE 0.12% ORAL rinse 473ML MT SCH ×2 (09:59→21:50)
[2017-05-06] MEDS: HYDROCORTONE 1% TOPICAL CREAM 30 GM TUBE TOP PRN ×2 (11:10→21:51)
[2017-05-06] MEDS: SENNA 8.6 MG TAB PO PRN ×2 (11:10→21:51)
[2017-05-06] MEDS: ALBUTEROL SULF 2.5 MG/0.5ML(0.5%) NEB SOLN NEB SCH (18:39)
[2017-05-06] MEDS: ATORVASTATIN 20 MG TAB PO SCH (21:50)
[2017-05-07] VITALS (21 sets, daily range): BP systolic 105–160; BP diastolic 38–97
[2017-05-07] MEDS: ALBUTEROL SULF 2.5 MG/0.5ML(0.5%) NEB SOLN NEB SCH ×4 (00:36→22:33)
[2017-05-07] MEDS: IPRATROPIUM BROM 0.5 MG/2.5ML INH SOL NEB SCH ×6 (02:04→22:33)
[2017-05-07] MEDS: MEROPENEM 1gm/20ml IVPUSH 20 ML IV SCH ×3 (02:23→18:31)
[2017-05-07] MEDS: ACETYLCYSTEINE 10 %(100MG/ML) SOL 4ML NEB SCH ×3 (06:00→22:33)
[2017-05-07] MEDS: ACCU-CHEK COMFORT CURVE STRIP VI SCH ×4 (06:37→21:57)
[2017-05-07] MEDS: glipiZIDE 5 MG TAB PO SCH (06:37)
[2017-05-07] MEDS: InsuLIN REG 1unit/0.01ml Soln (100units/ml) SC SCH ×4 (06:37→21:57)
[2017-05-07] MEDS: LEVOTHYROXINE SODIUM 100 MCG TAB PO SCH (06:38)
[2017-05-07] MEDS: Boost Glucose Control 8 Ounces PO SCH ×3 (08:00→18:54)
[2017-05-07] MEDS: NITROGLYCERIN 0.4MG/HR TOPICAL PATCH TD SCH (10:17)
[2017-05-07] MEDS: METOPROLOL TARTRATE 50 MG TAB PO SCH ×2 (10:19→21:56)
[2017-05-07] MEDS: ASCORBIC ACID 500 MG TAB PO SCH (10:20)
[2017-05-07] MEDS: HYDROcodone-ACET 7.5/325MG TAB PO PRN ×2 (10:20→18:16)
[2017-05-07] MEDS: ASPirin-EC 81 mg tab PO SCH (10:21)
[2017-05-07] MEDS: AMIODARONE HCL 200 MG TAB PO SCH (10:21)
[2017-05-07] MEDS: POTASSIUM CHL 20 Meq TABLET PO SCH (10:21)
[2017-05-07] MEDS: INSULIN NPH Isophane (HUMAN) 1unit/0.01ml Susp(100units/ml) SC SCH ×2 (10:22→20:29)
[2017-05-07] MEDS: PANTOPRAZOLE 40 MG/10 ML VIAL IV SCH (10:22)
[2017-05-07] MEDS: FUROSEMIDE 20 MG/2 ML VIAL IV SCH (10:23)
[2017-05-07] MEDS: CHLORHEXIDINE 0.12% ORAL rinse 473ML MT SCH ×2 (10:25→21:55)
[2017-05-07] MEDS: MICAFUNGIN SODIUM 100 MG in SODIUM CHL 0.9% 100 ML IV SCH (10:25)
[2017-05-07] MEDS ORDERED: SODIUM POLYSTYRENE SULF 15GM/60ML SUSP PO ONE (10:45)
[2017-05-07] MEDS ORDERED: SODIUM CHLORIDE 0.9% 1,000 ML IV SCH (16:00)
[2017-05-07] MEDS: ATORVASTATIN 20 MG TAB PO SCH (21:56)
[2017-05-07] MEDS: SENNA 8.6 MG TAB PO PRN (21:57)
[2017-05-07] MEDS: HYDROCORTONE 1% TOPICAL CREAM 30 GM TUBE TOP PRN (21:58)
[2017-05-07] MEDS ORDERED: ACETYLCYSTEINE 20%(200MG/ML) SOL 4ML ONE (22:16)
[2017-05-08] VITALS (26 sets, daily range): BP systolic 98–174; BP diastolic 26–122
[2017-05-08] MEDS: IPRATROPIUM BROM 0.5 MG/2.5ML INH SOL NEB SCH ×6 (02:00→22:17)
[2017-05-08] MEDS: MEROPENEM 1gm/20ml IVPUSH 20 ML IV SCH ×3 (02:30→19:00)
[2017-05-08 04:00] LABS: Basophils # (auto) 0 uL; Basophils % (auto) 0.3 % (0.0-2.0); Eosinophils # (auto) 0.6 uL; Hemoglobin 8.4 g/dL (12.2-16.2)
[2017-05-08 04:02] LABS: Eosinophils % (auto) 4.9 % (0.0-7.0); Hematocrit 25.7 % (36.0-46.0); Lymphocytes % (auto) 15.7 % (10.0-50.0); Mean Corpuscular Hgb Conc. 32.7 g/dL (32.0-36.0); Mean Corpuscular Volume 88.8 fL (80.0-100.0); Monocytes # (auto) 1.5 uL; Monocytes % (auto) 12.3 % (0.0-12.0); Neutrophils # (auto) 8.3 uL; Neutrophils % (auto) 66.8 % (37.0-80.0); Nucleated Red Blood Cells % 0.1 %; Platelet Count (auto) 260 10^3/uL (140-450); Red Cell Distribution Width 16.9 % (11.8-14.3); White Blood Cell 12.4 10^3/uL (4.4-10.8)
[2017-05-08 04:24] LABS: BUN/Creatinine Ratio 41.2; Potassium 3.8 mmol/L (3.5-5.1)
[2017-05-08] MEDS ORDERED: ACETYLCYSTEINE 20%(200MG/ML) SOL 4ML ONE (05:37)
[2017-05-08] MEDS: InsuLIN REG 1unit/0.01ml Soln (100units/ml) SC SCH ×4 (06:58→21:51)
[2017-05-08] MEDS: glipiZIDE 5 MG TAB PO SCH (06:58)
[2017-05-08] MEDS: LEVOTHYROXINE SODIUM 100 MCG TAB PO SCH (06:58)
[2017-05-08] MEDS: ACCU-CHEK COMFORT CURVE STRIP VI SCH ×4 (06:58→21:50)
[2017-05-08] MEDS: ACETYLCYSTEINE 10 %(100MG/ML) SOL 4ML NEB SCH ×3 (07:02→22:17)
[2017-05-08] MEDS: Boost Glucose Control 8 Ounces PO SCH ×3 (08:00→18:16)
[2017-05-08] MEDS ORDERED: ENOXAPARIN SOD 40 MG/0.4 ML SYRINGE SC ONE (10:15)
[2017-05-08] MEDS: FUROSEMIDE 20 MG/2 ML VIAL IV SCH (11:45)
[2017-05-08] MEDS: PANTOPRAZOLE 40 MG/10 ML VIAL IV SCH (11:45)
[2017-05-08] MEDS: AMIODARONE HCL 200 MG TAB PO SCH (11:46)
[2017-05-08] MEDS: METOPROLOL TARTRATE 50 MG TAB PO SCH ×2 (11:47→21:50)
[2017-05-08] MEDS: ASCORBIC ACID 500 MG TAB PO SCH (11:47)
[2017-05-08] MEDS: ASPirin-EC 81 mg tab PO SCH (11:48)
[2017-05-08] MEDS: NITROGLYCERIN 0.4MG/HR TOPICAL PATCH TD SCH (11:48)
[2017-05-08] MEDS: MICAFUNGIN SODIUM 100 MG in SODIUM CHL 0.9% 100 ML IV SCH (11:49)
[2017-05-08] MEDS: POTASSIUM CHL 20 Meq TABLET PO SCH (11:54)
[2017-05-08] MEDS: CHLORHEXIDINE 0.12% ORAL rinse 473ML MT SCH ×2 (11:54→21:50)
[2017-05-08] MEDS: INSULIN NPH Isophane (HUMAN) 1unit/0.01ml Susp(100units/ml) SC SCH ×2 (11:54→20:00)
[2017-05-08] MEDS: SODIUM CHLORIDE 0.9% 1,000 ML IV SCH (12:08)
[2017-05-08] MEDS: HYDROcodone-ACET 7.5/325MG TAB PO PRN ×2 (14:30→21:50)
[2017-05-08] MEDS: ALBUTEROL SULF 2.5 MG/0.5ML(0.5%) NEB SOLN NEB SCH (19:53)
[2017-05-08] MEDS: ATORVASTATIN 20 MG TAB PO SCH (21:50)
[2017-05-09] VITALS (48 sets, daily range): BP systolic 111–162; BP diastolic 20–93
[2017-05-09] MEDS: IPRATROPIUM BROM 0.5 MG/2.5ML INH SOL NEB SCH ×6 (02:20→22:31)
[2017-05-09] MEDS: ALBUTEROL SULF 2.5 MG/0.5ML(0.5%) NEB SOLN NEB SCH ×3 (02:20→22:31)
[2017-05-09] MEDS: MEROPENEM 1gm/20ml IVPUSH 20 ML IV SCH ×3 (02:26→18:52)
[2017-05-09 03:53] LABS: BUN/Creatinine Ratio 37.3; Calcium 8.1 mg/dL (8.5-10.1); Potassium 3.7 mmol/L (3.5-5.1)
[2017-05-09] MEDS: SODIUM CHLORIDE 0.9% 1,000 ML IV SCH (06:54)
[2017-05-09] MEDS: InsuLIN REG 1unit/0.01ml Soln (100units/ml) SC SCH ×4 (06:54→22:00)
[2017-05-09] MEDS: ACCU-CHEK COMFORT CURVE STRIP VI SCH ×4 (06:54→22:00)
[2017-05-09] MEDS: glipiZIDE 5 MG TAB PO SCH (06:54)
[2017-05-09] MEDS: LEVOTHYROXINE SODIUM 100 MCG TAB PO SCH (06:54)
[2017-05-09] MEDS: ACETYLCYSTEINE 10 %(100MG/ML) SOL 4ML NEB SCH ×3 (06:58→22:31)
[2017-05-09] MEDS: Boost Glucose Control 8 Ounces PO SCH ×3 (08:30→18:51)
[2017-05-09] MEDS: PANTOPRAZOLE 40 MG/10 ML VIAL IV SCH (09:39)
[2017-05-09] MEDS: FUROSEMIDE 20 MG/2 ML VIAL IV SCH (09:40)
[2017-05-09] MEDS: NITROGLYCERIN 0.4MG/HR TOPICAL PATCH TD SCH (09:41)
[2017-05-09] MEDS: ASPirin-EC 81 mg tab PO SCH (09:42)
[2017-05-09] MEDS: ASCORBIC ACID 500 MG TAB PO SCH (09:42)
[2017-05-09] MEDS: POTASSIUM CHL 20 Meq TABLET PO SCH (09:42)
[2017-05-09] MEDS: AMIODARONE HCL 200 MG TAB PO SCH (09:43)
[2017-05-09] MEDS: CHLORHEXIDINE 0.12% ORAL rinse 473ML MT SCH ×2 (09:43→22:31)
[2017-05-09] MEDS: MICAFUNGIN SODIUM 100 MG in SODIUM CHL 0.9% 100 ML IV SCH (09:57)
[2017-05-09] MEDS: INSULIN NPH Isophane (HUMAN) 1unit/0.01ml Susp(100units/ml) SC SCH ×2 (09:58→20:00)
[2017-05-09] MEDS ORDERED: ENOXAPARIN SOD 40 MG/0.4 ML SYRINGE SC SCH (10:00)
[2017-05-09] MEDS: METOPROLOL TARTRATE 50 MG TAB PO SCH ×2 (10:47→22:00)
[2017-05-09] MEDS: HYDROcodone-ACET 7.5/325MG TAB PO PRN ×2 (10:52→22:00)
[2017-05-09] MEDS: hydrALAZINE HCL 20 MG/ML VL IV PRN (19:05)
[2017-05-09] MEDS ORDERED: METO-158 PO (20:23)
[2017-05-09] MEDS ORDERED: POTA10TA51 PO (20:24)
[2017-05-09] MEDS: ATORVASTATIN 20 MG TAB PO SCH (22:00)
[2017-05-10] VITALS: BP 152/56
[2017-05-10 00:30] VITALS: BP 140/57
== END 2017-05-10 00:38 | DRG 233 ==
LOC: ER 16:55 → TELE 16:56 → ICU WEST 04-25 23:36
PROVIDERS: ADMIT Internal Medicine; ATTEND Internal Medicine Pulmonary Disease
PROC: 4A023N7 Measurement of Cardiac Sampling and Pressure, Left Heart, Percutaneous Approach (ICD-10-PCS; 2017-04-25)
PROC: 021209W Bypass Coronary Artery, Three Arteries from Aorta with Autologous Venous Tissue, Open Approach (ICD-10-PCS; 2017-04-25)
PROC: 06BP4ZZ Excision of Right Saphenous Vein, Percutaneous Endoscopic Approach (ICD-10-PCS; 2017-04-25)
PROC: 5A1221Z Performance of Cardiac Output, Continuous (ICD-10-PCS; 2017-04-25)
PROC: B2111ZZ Fluoroscopy of Multiple Coronary Arteries using Low Osmolar Contrast (ICD-10-PCS; 2017-04-25)
PROC: B2151ZZ Fluoroscopy of Left Heart using Low Osmolar Contrast (ICD-10-PCS; 2017-04-25)
PROC: 02100Z9 Bypass Coronary Artery, One Artery from Left Internal Mammary, Open Approach (ICD-10-PCS; principal; 2017-04-25 16:25)
PROC: 30233N1 Transfusion of Nonautologous Red Blood Cells into Peripheral Vein, Percutaneous Approach (ICD-10-PCS; 2017-04-26)
PROC: 5A09357 Assistance with Respiratory Ventilation, Less than 24 Consecutive Hours, Continuous Positive Airway Pressure (ICD-10-PCS; 2017-04-27)
PROC: 5A09357 Assistance with Respiratory Ventilation, Less than 24 Consecutive Hours, Continuous Positive Airway Pressure (ICD-10-PCS; 2017-04-28)
PROC: 5A09357 Assistance with Respiratory Ventilation, Less than 24 Consecutive Hours, Continuous Positive Airway Pressure (ICD-10-PCS; 2017-04-29)
PROC: 5A09357 Assistance with Respiratory Ventilation, Less than 24 Consecutive Hours, Continuous Positive Airway Pressure (ICD-10-PCS; 2017-04-30)
PROC: 0Y380ZZ Control Bleeding in Left Femoral Region, Open Approach (ICD-10-PCS; 2017-05-01)
PROC: 5A09357 Assistance with Respiratory Ventilation, Less than 24 Consecutive Hours, Continuous Positive Airway Pressure (ICD-10-PCS; 2017-05-01)
PROC: 5A09357 Assistance with Respiratory Ventilation, Less than 24 Consecutive Hours, Continuous Positive Airway Pressure (ICD-10-PCS; 2017-05-03)
DX: I21.4 Non-ST elevation (NSTEMI) myocardial infarction (principal); I50.43 Acute on chronic combined systolic (congestive) and diastolic (congestive) heart failure; J96.90 Respiratory failure, unspecified, unspecified whether with hypoxia or hypercapnia; N17.0 Acute kidney failure with tubular necrosis; E11.22 Type 2 diabetes mellitus with diabetic chronic kidney disease; D64.9 Anemia, unspecified; S30.1XXA Contusion of abdominal wall, initial encounter; I13.0 Hypertensive heart and chronic kidney disease with heart failure and stage 1 through stage 4 chronic kidney disease, or unspecified chronic kidney disease; E11.51 Type 2 diabetes mellitus with diabetic peripheral angiopathy without gangrene; I11.0 Hypertensive heart disease with heart failure; E03.9 Hypothyroidism, unspecified; E66.01 Morbid (severe) obesity due to excess calories; E78.5 Hyperlipidemia, unspecified; E87.5 Hyperkalemia; E87.6 Hypokalemia; I25.2 Old myocardial infarction; J98.09 Other diseases of bronchus, not elsewhere classified; N18.3 Chronic kidney disease, stage 3 (moderate); K59.00 Constipation, unspecified; Z82.3 Family history of stroke; Z82.49 Family history of ischemic heart disease and other diseases of the circulatory system; Z83.3 Family history of diabetes mellitus; Z86.73 Personal history of transient ischemic attack (TIA), and cerebral infarction without residual deficits; Z95.5 Presence of coronary angioplasty implant and graft
CPT/HCPCS: 36415; 36600; 70450; 71045; 76705; 80048; 80053; 80061; 81001; 82040; 82550; 82805; 82962; 83036; 83735; 83880; 84100; 84132; 84443; 84484; 85007; 85014; 85018; 85025; 85027; 85576; 85610; 85652; 85730; 86141; 86850; 86900; 86901; 86920; 87070; 87077; 87081; 87186; 87205; 93005; 93306; 93458; 93886; 93926; 93970; 94002; 94003; 94640; 94660; 96361; 96372; 96374; 96375; 96379; 97110; 97116; 97163; 97530; 99152; C1751; C1768; C9113; J0610; J0690; J1642; J1644; J1815; J2248; J2250; J2405; J2440; J2704; J3480; J7060; P9047